=== PATIENT | male | born 1955 | race Caucasian/White ===

== ENCOUNTER 2016-12-02 10:02 | Outpatient (CLI) | payer MEDICAID | END 2016-12-02 10:03 | disposition home or self-care (01) | DX: E11.9 Type 2 diabetes mellitus without complications (principal) ==

== ENCOUNTER 2017-01-01 12:24 | Outpatient (CLI) | payer MEDICAID | END 2017-01-01 12:25 | disposition home or self-care (01) | DX: L03.116 Cellulitis of left lower limb (principal) ==

== ENCOUNTER 2017-03-22 09:35 | Outpatient (CLI) | payer MEDICAID ==
[2017-03-22 19:08] LABS: ALBUMIN/GLOBULIN RATIO 1.3 (1.0-2.2); BILIRUBIN,TOTAL 0.4 mg/dL (0.2-1.0); BUN - BLOOD UREA NITROGEN 39 mg/dL (6-20); CALCIUM 10.2 mg/dL (8.5-10.3); CARBON DIOXIDE - CO2 27 mmol/L (21-32); CHLORIDE 108 mmol/L (101-111); CHOLESTEROL 112 mg/dL; CREATININE 1.3 mg/dL (0.6-1.2); GFR - MDRD 57 (>89); GLUCOSE 70 mg/dL (70-100); HDL CHOLESTEROL 28 mg/dL; LDL/HDL RATIO 1.9 (<3.6); POTASSIUM 4.4 mmol/L (3.5-5.0); SODIUM 143 mmol/L (135-145); TOTAL PROTEIN 7.9 g/dL (6.7-8.2); TRIGLYCERIDES 162 mg/dL; VLDL CHOLESTEROL 32 mg/dL
== END 2017-03-22 09:36 | disposition home or self-care (01) ==
LOC: LAB.F 09:35
PROVIDERS: ATTEND Nurse Practitioner Family
DX: E11.40 Type 2 diabetes mellitus with diabetic neuropathy, unspecified (principal)
CPT/HCPCS: 36415; 80053; 80061; 82043; 84443

== ENCOUNTER 2017-05-06 14:09 | Outpatient (CLI) | payer MEDICAID ==
[2017-05-06 16:26] LABS: HEMOGLOBIN A1C 0.93 g/dL
== END 2017-05-06 14:10 | disposition home or self-care (01) ==
LOC: LAB 14:09
PROVIDERS: ATTEND Nurse Practitioner Family
DX: E11.9 Type 2 diabetes mellitus without complications (principal)
CPT/HCPCS: 36415; 83036

== ENCOUNTER 2017-05-25 13:28 | Outpatient (CLI) | payer MEDICAID | END 2017-05-25 13:29 | disposition home or self-care (01) | LOC: RT.S 13:28 | PROVIDERS: ATTEND Nurse Practitioner Family | DX: E11.40 Type 2 diabetes mellitus with diabetic neuropathy, unspecified (principal) | CPT/HCPCS: 93005 ==

== ENCOUNTER 2017-06-23 12:02 | Emergency (ER) | payer MEDICAID ==
[2017-06-23] MEDS ORDERED: TETANUS/DIPHTHERIA/PERTUSSIS 0.5 ML SYRINGE IM ONE ×2 (12:21→12:41)
[2017-06-23] MEDS ORDERED: BUPIVACAINE 0.5% PF 30 ML VIAL SUBQ STA (13:00)
--- NOTE | 2017-06-23 13:06 | ED Physician Documentation ---
PD HPI UPPER EXT INJURY - Stated complaint Stated Complaint: R FINGER LAC/GLF - Chief complaint Chief Complaint: Ext Problem - History obtained from History obtained from: Patient, Family - History of Present Illness Location: Right, Finger (ring finger) Where injury occurred: Home Timing - onset: How many days ago (3) Timing - duration: Days (3) Timing - details: Gradual onset Pain level max: 4 Pain level now: 3 Improved by: Rest Worsened by: Moving, Palpating Associated symptoms: Swelling. No: Weakness, Numbness, Tingling Contributing factors: Other (diabetic male) Recently seen: Not recently seen Review of Systems Constitutional: denies: Fever, Chills Throat: denies: Sore throat Respiratory: denies: Cough GI: denies: Abdominal Pain, Nausea, Vomiting, Diarrhea Skin: denies: Rash Musculoskeletal: denies: Neck pain, Back pain Neurologic: denies: Headache PD PAST MEDICAL HISTORY - Past Medical History Cardiovascular: Hypertension, High cholesterol Neuro: Head injury, Peripheral neuropathy Endocrine/Autoimmune: Type 2 diabetes GI: None : Incontinence HEENT: Chronic vision loss Psych: Depression, Bipolar disorder, Panic attacks, Post traumatic stress disorder Musculoskeletal: None Derm: None - Past Surgical History Past Surgical History: Yes General: Other Ortho: Amputation - Present Medications Home Medications: Ambulatory Orders Medication Instructions Recorded Confirmed ARIPiprazole [Abilify] 15 mg PO QPM 03/02/13 06/23/17 Lisinopril 10 mg PO BID 03/02/13 06/23/17 Sertraline [Zoloft] 50 mg PO BID 03/02/13 06/23/17 Insulin Glargine,Hum.rec.anlog 35 - 40 units SUBQ BID 03/25/15 06/23/17 [Lantus] Insulin Regular, Human [Humulin R] 5 - 11 unit SQ TIDWM 03/25/15 06/23/17 Methadone 1.5 tab PO QPM 03/25/15 06/23/17 Multivitamin [Multivitamins] 1 cap PO DAILY 03/25/15 06/23/17 Niacin 100 mg PO BID 03/25/15 06/23/17 Triamcinolone 0.1% Cream [Kenalog 1 applic TOP DAILY PRN 03/25/15 06/23/17 0.1% Cream] Ubidecarenone [Co Q-10] 1 cap PO DAILY 03/25/15 06/23/17 lamoTRIgine [Lamictal] 150 mg PO BID 03/25/15 06/23/17 metFORMIN [Glucophage] 1,000 mg PO BID 03/25/15 06/23/17 Pravastatin Sodium 40 mg PO DAILY 03/26/15 06/23/17 Methadone 2 tab PO DAILY 04/27/16 06/23/17 Clindamycin HCl 300 mg PO Q6H #28 capsule 06/23/17 - Allergies Allergies/Adverse Reactions: Allergies Allergy/AdvReac Type Severity Reaction Status Date / Time atorvastatin calcium * Allergy Unknown Unknown Verified 06/23/17 12:31 [From Lipitor] - Social History Does the pt smoke?: Yes Smoking Status: Current every day smoker Does the pt drink ETOH?: No Does the pt have substance abuse?: No - Immunizations Immunizations are current?: No Immunizations: TDAP >10years/unknown PD ED PE NORMAL - Vitals Vital signs reviewed: Yes - General General: Alert and oriented X 3, No acute distress - HEENT HEENT: Moist mucous membranes - Neck Neck: Supple, no meningeal sign - Cardiac Cardiac: RRR, No murmur - Respiratory Respiratory: No respiratory distress, Clear bilaterally - Derm Derm: Warm and dry - Extremities Extremities: Other (R hand - swelling and redness to the R 4th digit, rings stuck on finger. NVI. swelling over dorsum of hand. No redness over the hand. No flexor tendon tenderness or palmar tenderness. ) - Neuro Neuro: Alert and oriented X 3 - Psych Psych: Normal mood, Normal affect Results - Vitals Vitals: Vital Signs - 24 hr 06/23/17 06/23/17 12:15 15:20 Temperature 36.7 C Heart Rate 84 80 Respiratory 18 20 Rate Blood Pressure 134/64 H 130/60 O2 Saturation 98 99 Oxygen O2 Source Room air - Rads (name of study) R hand xray Radiology: Prelim report reviewed, EMP read contemporaneously, See rad report ( Prominent right fourth finger soft tissue swelling adjacent to proximal interphalangeal joint. No fracture evident. ) PD MEDICAL DECISION MAKING - ED course Complexity details: reviewed results, re-evaluated patient, considered differential, d/w patient, d/w family ED course: Patient is a 61-year-old male who presents to the emergency department with a right hand cellulitis and skin breakdown under the rings from the swelling on the right fourth digit. A digital block was performed with 0.5% Marcaine with excellent anesthesia achieved. A rubber blood tourniquet was then used to squeeze the edema from the finger and the rings were able to be removed. The wounds were then cleansed, dressed with antibiotic ointment and Band-Aids. Will place on antibiotics for home as well. He does already see the [facility] for wound care and will likely need wound care for this injury as well. There is no lymphangitic spread or evidence of deep space infection in the hand. No flexor tenosynovitis. Patient and family counseled regarding signs and symptoms for which I believe and urgent re-evaluation would be necessary. Patient with good understanding of and agreement to plan and is comfortable going home at this time This document was made in part using voice recognition software. While efforts are made to proofread this document, sound alike and grammatical errors may occur. Departure - Departure Disposition: 01 Home, Self Care Clinical Impression: Cellulitis of hand Hand abrasion, infected Qualifiers: Encounter type: initial encounter Laterality: right Qualified Code(s): S60.511A - Abrasion of right hand, initial encounter Condition: Good Instructions: ED Infec Skin Cellulitis Follow-Up: Hannah Woods ARNP [Primary Care Provider] - Within 3 Days Prescriptions: Clindamycin HCl 300 mg PO Q6H #28 capsule Comments: Take all antibiotics until gone. It is important that you follow-up with your doctor within the next 3-4 days to have your wound rechecked. Return here if you are worsening prior to that time. Return especially for redness, swelling drainage or fevers. Discharge Date/Time: 06/23/17 15:21
[2017-06-23] MEDS ORDERED: BUPIVACAINE 0.5% PF 30 ML VIAL ONE (13:07)
[2017-06-23] MEDS ORDERED: CLINDAMYCIN 150 MG CAPSULE PO STA (14:06)
[2017-06-23] MEDS ORDERED: cefTRIAXone 1 GM VIAL IM STA (14:06)
[2017-06-23] MEDS ORDERED: BACITRACIN OINT TOP ONE (14:11)
[2017-06-23] MEDS ORDERED: LIDOCAINE 1% 2 ML VIAL ONE (14:19)
[2017-06-23] MEDS ORDERED: cefTRIAXone 1 GM VIAL ONE (14:19)
[2017-06-23] MEDS ORDERED: CLINDAMYCIN 150 MG CAPSULE PO ONE (14:19)
--- NOTE | 2017-06-23 15:10 | XRAY Preliminary Report ---
Exam: XR HAND 3 VIEW RT IMPRESSION: 1. Prominent right fourth finger soft tissue swelling adjacent to proximal interphalangeal joint. 2. No fracture evident. [facility] SITE ID: [id number]
--- NOTE | 2017-06-23 15:13 | XRAY Report ---
EXAM: RIGHT HAND RADIOGRAPHY EXAM DATE: 06/23/2017 02:40 PM. CLINICAL HISTORY: Fall, R 4th digit swelling, pain, infection. COMPARISON: None. TECHNIQUE: 3 views. FINDINGS: Bones: Normal. No fractures or bone lesions. Joints: Right index finger distal interphalangeal joint was flexed at time of exam. Soft Tissues: Prominent fourth finger soft tissue swelling adjacent to proximal interphalangeal join t. Adjacent gauze or splint. IMPRESSION: 1. Prominent right fourth finger soft tissue swelling adjacent to proximal interphalangeal joint. 2. No fracture evident. [facility] Referring Provider Line: [phone] SITE ID: [id number]
[2017-06-23 15:21] VITALS: BP 130/60
== END 2017-06-23 15:21 | disposition home or self-care (01) ==
LOC: ED 12:02
DX: L03.011 Cellulitis of right finger (principal); S60.511A Abrasion of right hand, initial encounter; S60.454A Superficial foreign body of right ring finger, initial encounter; W23.1XXA Caught, crushed, jammed, or pinched between stationary objects, initial encounter; W19.XXXA Unspecified fall, initial encounter; Y92.009 Unspecified place in unspecified non-institutional (private) residence as the place of occurrence of the external cause; Z23 Encounter for immunization; E11.42 Type 2 diabetes mellitus with diabetic polyneuropathy; I10 Essential (primary) hypertension; Z79.4 Long term (current) use of insulin
CPT/HCPCS: 64450; 73130; 90471; 90715; 96372; 99283; 99284; A9270

== ENCOUNTER 2017-08-27 11:28 | Outpatient (CLI) | payer MEDICAID ==
--- NOTE | 2017-08-27 15:29 | XRAY Report ---
DATE OF SERVICE: 08/27/2017 THREE VIEW LEFT SECOND TOE: 08/27/2017 CLINICAL INDICATION: Infection. COMPARISON: 09/09/2010. FINDINGS: AP, lateral, oblique views of the left second toe demonstrate interval complete destruction of the distal phalanx. There has also been increased destruction of the distal phalanx of the left third toe. Early osteolysis of the middle phalanx of the second toe was noted. Degenerative changes are seen. IMPRESSION: OSTEOMYELITIS, WITH COMPLETE DESTRUCTION OF THE DISTAL PHALANX OF THE SECOND TOE, OSTEOLYSIS OF THE MIDDLE PHALANX OF THE SECOND TOE, AND PROGRESSION OF OSTEOLYSIS OF THE DISTAL PHALANX OF THE THIRD TOE FROM 09/09/2010. Results called to YUMIKO Wiley, on 08/27/2017 at 1410 hours. TD: 08/27/2017 16:28
== END 2017-08-27 11:29 | disposition home or self-care (01) ==
LOC: DI.S 11:28
PROVIDERS: ATTEND Nurse Practitioner Family
DX: M86.8X7 Other osteomyelitis, ankle and foot (principal); M89.572 Osteolysis, left ankle and foot
CPT/HCPCS: 73660

== ENCOUNTER 2017-08-27 11:30 | Outpatient (CLI) | payer MEDICAID | END 2017-08-27 11:31 | disposition home or self-care (01) | LOC: LAB.R 11:30 | PROVIDERS: ATTEND Nurse Practitioner Family | DX: L08.9 Local infection of the skin and subcutaneous tissue, unspecified (principal) | CPT/HCPCS: 87070; 87077; 87205 ==

== ENCOUNTER 2017-08-27 14:03 | Outpatient (CLI) | payer MEDICAID ==
[2017-08-27 18:03] LABS: BASOPHILS % (AUTO) 0.5 %; EOSINOPHILS # (AUTO) 0.2 10^3/uL (0.0-0.7); EOSINOPHILS % (AUTO) 1.7 %; HGB - HEMOGLOBIN 11.6 g/dL (14.0-18.0); LYMPHOCYTES # (AUTO) 1.9 10^3/uL (1.5-3.5); LYMPHOCYTES % (AUTO) 20.5 %; MEAN CORPUSCULAR HEMOGLOBIN 28.7 pg (27.0-31.0); MEAN CORPUSCULAR HGB CONC 33.1 g/dL (32.0-36.0); MEAN CORPUSCULAR VOLUME 86.5 fL (80.0-94.0); MEAN PLATELET VOLUME 9.2 fL (7.4-11.4); MONOCYTES # (AUTO) 0.5 10^3/uL (0.0-1.0); MONOCYTES % (AUTO) 5.6 %; NEUTROPHILS # (AUTO) 6.5 10^3/uL (1.5-6.6); NEUTROPHILS % (AUTO) 71.7 %; PLT - PLATELET COUNT 169 10^3/uL (130-450); RED BLOOD COUNT 4.06 10^6/uL (4.70-6.10); RED CELL DISTRIBUTION WIDTH 15.4 % (12.0-15.0); WHITE BLOOD COUNT 9.1 x10^3/uL (4.8-10.8)
== END 2017-08-27 14:04 | disposition home or self-care (01) ==
LOC: LAB.F 14:03
PROVIDERS: ATTEND Nurse Practitioner Family
DX: L08.9 Local infection of the skin and subcutaneous tissue, unspecified (principal)
CPT/HCPCS: 36415; 85025; 85651; 86140

== ENCOUNTER 2017-08-27 15:33 | Inpatient (IN) | payer MEDICAID ==
[2017-08-27] MEDS ORDERED: SODIUM CHLORIDE FLUSH 0.9% 10 ML SYRINGE IVP PRN (16:41)
[2017-08-27] MEDS ORDERED: TRIAMCINOLONE 0.1% CREAM 15 GM TUBE TOP PRN (16:45)
[2017-08-27] MEDS ORDERED: VANCOMYCIN PER PHARMACY 1 GM in SODIUM CHLORIDE 0.9% 250 ML IV SCH (17:00)
[2017-08-27] MEDS ORDERED: INSULIN ASPART 300 UNIT/3 ML PEN SUBQ SCH (17:00)
[2017-08-27] MEDS ORDERED: SODIUM CHLORIDE 0.9% 1,000 ML IV SCH (17:00)
[2017-08-27] MEDS: INSULIN ASPART 300 UNIT/3 ML PEN SUBQ SCH ×2 (17:26→21:16)
[2017-08-27] MEDS: PIPERACILLIN/TAZOBACTAM 3.375 GM in SODIUM CHLORIDE 0.9% MINIBAG 100 ML IV SCH ×2 (19:11→23:39)
[2017-08-27] MEDS: VANCOMYCIN INJ 1 GM in SODIUM CHLORIDE 0.9% 250 ML IV SCH (19:12)
--- NOTE | 2017-08-27 20:08 | HISTORY & PHYSICAL EXAMINATION ---
DATE OF SERVICE: Physician: Ana Rosa Gómez MD DATE OF ADMISSION: 08/27/2017. PRIMARY CARE PHYSICIAN: CYNTHIA Wiley. ADMITTING PROVIDER: Ana Rosa Gómez MD CHIEF COMPLAINT: Severe infection of left foot second and third toes. HISTORY OF PRESENT ILLNESS: Mr. Jon has had diabetes mellitus for 30 years, but he really was not probably adequately treated until the year 1999. As such, he has severe dense peripheral neuropathy and proteinuria as consequences of uncontrolled diabetes. He developed right foot ulcer and necrosis with extensive wound management in May 2013, and ended up having a below-knee amputation after a fall subsequent to that. Also, associated with that fall was an orbital fracture that he need to be transferred for. In July, he went to [place] for 2 weeks, and while there, walked down a long [facility]. Even before he walked down that road, he knew he had a tiny little sore on the tip of the second toe on his left foot. He had been seen by Maritza Black DPM on 07/30/17 and she described a mushy ulceration at the distal tip fo the 2nd digit left foot. She debrided it and he had a 1mm depth to the dermis, no drainage, no odor. He has a secnd pressure ulceration on the plantar surface of the 5th metatarsal that was 6x8 mm after debridement. He was instructed how to keep the toes clean and dry, and sent with dressing changes so he could take care of the toes in [place]. In retrospect, he said it was probably a bad decision to walk down that road. When he got back from that walk, he developed even more blister on the second and third toe. About 10-12 days ago, he started noticing that the toes were getting red, swollen, and hot. Because of his dense neuropathy, he really did not feel much pain. He has not had any fever, chills. He has had no change in bowel habits. No myalgias. Over the last couple of days, the toes really started looking "bad" in that they started turning black. So he went to go see his primary care provider, YUMIKO Wiley. Plain films shows osteomyelitis. She looked at the feet and spoke to Dr. Franks, orthopedic surgery. It is possible he may need amputation. Dr. Franks asked the patient to be admitted to my service and then he would take a look at him. I have direct-admitted the patient to the floor. Ms. Woods has stated the patient is hemodynamically stable without any problems of sepsis. History is obtained from the patient. He is an alert, oriented, middle-aged white male. The above history is what he tells me, in addition to the story from Hannah Woods. PAST MEDICAL HISTORY: 1. Type 2 diabetes mellitus, with complications, on long-term use of insulin. Complications include neuropathy and proteinuria. He is not compliant with meds, followup visits, and dietary restrictions. Does see his instructor pilot for diabetic foot exams and also [place] ed educational [place] [facility] [place] maintaining the health of the right leg stump after the BKA. 2. Bipolar disorder with depressive disorder, all of his life. 3. Hepatitis C. He did do IV drugs in 1978 and 1979. Hepatitis C is quiescent and never required treatment. He does not have cirrhosis. 4. Hypertension. 5. Chronic pain disorder secondary to dense neuropathy. Seen by [facility] in 2014 and re-referred 11/2106. With the 2015 notes he was on gabapentin 300 mg capsules, 3 cap tid and with the methadone he was on 10 mg tabs, 2 po bid. Drug screen positive for only THC then. 6. Hyperlipidemia 7. Fall while in hospital for BKA resulting in orbital fracture and transfer to [place]. 8. History of pancreatitis. PAST SURGICAL HISTORY: 1. Below-knee amputation 05/2013. 2. Some type of gastric surgery when he was a . ALLERGIES: NO KNOWN DRUG ALLERGIES. MEDICATIONS: 1. Abilify 15 mg p.o. q. p.m. 2. Vitamin B12 500 mcg q. p.m. 3. Gabapentin 800 mg p.o. t.i.d. 4. Lantus 35 units subQ b.i.d. 5. Humulin R 10 units subQ q. t.i.d. 6. Lamictal 150 p.o. b.i.d. 7. Lisinopril 10 mg p.o. b.i.d. 8. Glucophage 1000 mg p.o. b.i.d. 9. Methadone 15 mg p.o. q. p.m. and 20 mg p.o. q.a.m. 10. Theragran tablet, 1 p.o. daily. 11. Pravastatin 40 mg a day. 12. Sertraline 50 mg p.o. b.i.d. 13. Zanaflex 8 mg p.o. q. p.m. SOCIAL HISTORY: He was born in [place], [place]. Met his when he was partying in [place], [place]. They have been together for 30 years. 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 They never had children together. He has been on disability for 10 years due to his diabetes and his bipolar disorder. He started smoking in his teenage years around 1970 and was up to 1 pack per day, started around the age of 17. He still continues to smoke, but was off smoking for at least 10 years. He used to drink up to a bottle of vodka a day and he stopped in 2012 with the BKA. He has done methamphetamines for 5 years, but that was back in the . He has not done any since. Occasional cannabis. No LSD, heroin. FAMILY HISTORY: Mom at age 75 of natural causes. Dad at 65 of alcoholism. One brother and one sister when they were young and he does not remember what they of because he really has not kept in touch for over 30 years. He still has 2 brothers and 1 sister alive and really does not know very much about them. He has no children. REVIEW OF SYSTEMS: He denies any constitutional complaints of weight loss, fever, chills, unexpected weight changes. ENT: Gradually losing vision, but he denies retinopathy. He does not think it is glaucoma or cataracts. Denies amaurosis fugax. Denies any facial dysesthesias. Some decreased hearing. PULMONARY: Denies coughing, wheezing, shortness of breath, hemoptysis or phlegm. CARDIOVASCULAR: Denies angina, irregular heartbeats, murmurs, any form of heart disease. Denies any edema in the remaining left leg. No orthopnea. GASTROINTESTINAL: Has had chronic diarrhea for the last 2-3 months. It is liquid brown stool. It comes from out of nowhere, not necessarily associated with eating. There is no blood. No fever or chills with it. No abdominal pain. GENITOURINARY: Starting to develop decreased stream, 1-2 nocturia. Denies rectal pain, hematuria, dysuria, frequency. JOINTS: No severe pain or swelling. SKIN: Denies new lesions or ulcers or rashes. WOUND NURSE: He follows all the time because his balance is off, but he denies facial dysesthesias, dysarthria or dysphagia. He has a dense peripheral neuropathy. PSYCH: He is very much in love with his . Life is good. He gardens and listens to music, and that makes him very content, but the loss of his leg really psychologically rocked his world. He finds that if he needed to have anymore surgery, he almost thinks he would not have it done if it resulted in another amputation of the remaining leg. He denies suicidal ideation, homicidal ideation or paranoid ideation. PHYSICAL EXAMINATION: GENERAL: On examination, the patient was seen in his room as a direct admission. He was an alert, pleasant, middle-aged white male with long, curly salt and pepper hair, multiple rings on his hands and fingers, tanned. Walks with a slightly wide-based circumducted gait because of the right BKA and its orthotic. VITAL SIGNS: Temperature is 36.8, pulse is 77, blood pressure 128/65, respirations 16, and he is 97% on room air. He is a short-statured, middle-aged male. HEENT: Head and neck are unremarkable. NECK: Supple. No goiter or bruits. LUNGS: Clear to auscultation and percussion. No crackles, rhonchi or wheezing. No prolonged exhalation. No right ventricular lift. PMI is normally placed with regular rate and rhythm. No murmurs, rubs or gallops. ABDOMEN: Soft, nontender, slightly hyperactive borborygmi very evident, but no rebound or tenderness. No guarding. EXTREMITIES: Right leg stump, clean, well healed. The left second and third toes have necrosis and redness and heat. The metatarsal region is starting to develop redness and swelling as well. No drainage, no foul odor. I do not feel a pulse in the dorsalis pedis region of his left foot. NEUROLOGIC: He is alert and oriented to person, place and time. Can follow 2- step commands. Affect is slightly depressed and anxious. Dense, dense neuropathy. He cannot feel a needle prick in the palms or soles of his left foot. The deficit of his neuropathy extends quite up the left leg to the knee, and in his hands it extends up his forearms. Vibration sense also severely impaired. He ambulates well with the prosthesis on. Slight circumducted gait using the right hip. No focal deficits. Random glucose is 86. C-reactive protein is 1.3. His last A1c was 8.4%, May 06. Before that, it was 9.8%, 12/03/2016. CBC and CMP are pending. Toe x-ray from today in the outpatient setting is reviewed. He has osteomyelitis with complete destruction of the distal phalanx of the 2nd toe on the left foot. He has osteolysis of the middle phalanx of the second toe and progression of osteolysis of the distal phalanx of the third toe. ASSESSMENT: 1. Osteomyelitis. 2. Diabetic foot infection. For these 2 diseases, he will be placed on vancomycin and Zosyn coverage. I will have him seen by orthopedics, Dr. Franks. Nothing by mouth after midnight. Check PT and INR. I do not know if Dr. Franks will take him to surgery, but I will get him ready just in case. 3. Type 2 diabetes mellitus with complications and long-term use of insulin. Give Lantus 30 units subQ b.i.d. with 5 units before meals. We will see how his sugar does before I adjust it. He seems to have been uncontrolled in his A1c. In reading the clinic notes , this is his unfortunate pattern. 4. Bipolar disorder with depression. Resume usual medications. 5. Chronic pain syndrome. Resume his usual methadone. 6. Ongoing tobacco abuse. So far, no signs of emphysema on exam. Counseled to stop and the description of peripheral vascular disease was described with his pathophysiology. 7. DO NOT RESUSCITATE/DO NOT INTUBATE status. He states that the loss of his right leg with the amputation, he will not psychologically survive the loss of his left leg. Down the road, he realizes that he will only get more and more complications from his uncontrolled diabetes, and his smoking history. He is very fatalistic about it and as such he says that as he gets sicker, and ends up having a cardiopulmonary arrest, he would rather we NOT RESUSCITATE him at all. 8. Deep venous thrombosis prophylaxis will be SUZETTE hose and sequential compression devices until after surgery when I can switch him to Lovenox. I will attest that I plan to admit this patient for less than 96 hours. At 96 hours, I will assess the patient for transfer or discharge. TD: 08/27/2017 21:07 MTDAlisa
[2017-08-27 20:15] LABS: HEMOGLOBIN A1C 0.75 g/dL; HEMOGLOBIN A1C % 7.9 % (4.6-6.2)
[2017-08-27] MEDS ORDERED: NIACIN 100 MG PO SCH (21:00)
[2017-08-27] MEDS ORDERED: METHADONE 5 MG TABLET PO SCH (21:00)
[2017-08-27] MEDS ORDERED: tiZANidine 4 MG TABLET PO SCH (21:00)
[2017-08-27] MEDS ORDERED: ARIPiprazole 5 MG TABLET PO SCH (21:00)
[2017-08-27] MEDS ORDERED: INSULIN GLARGINE 300 UNIT/3 ML PEN SUBQ SCH (21:00)
[2017-08-27] MEDS: LISINOPRIL 5 MG TABLET PO SCH (21:20)
[2017-08-27] MEDS: GABAPENTIN 400 MG CAPSULE PO SCH (21:21)
[2017-08-27] MEDS: NICOTINE 21 MG PATCH TOP SCH (21:21)
[2017-08-27] MEDS: INSULIN GLARGINE 300 UNIT/3 ML PEN SUBQ SCH (21:22)
[2017-08-27] MEDS: SERTRALINE 50 MG TABLET PO SCH (21:22)
[2017-08-27] MEDS: SODIUM CHLORIDE FLUSH 0.9% 10 ML SYRINGE IVP SCH (21:22)
[2017-08-28] MEDS: PIPERACILLIN/TAZOBACTAM 3.375 GM in SODIUM CHLORIDE 0.9% MINIBAG 100 ML IV SCH ×2 (05:57→12:55)
[2017-08-28] MEDS: GABAPENTIN 400 MG CAPSULE PO SCH ×2 (05:57→14:37)
[2017-08-28 06:22] LABS: PT - PROTHROMBIN TIME 11.4 secs (9.9-12.6)
[2017-08-28 06:23] LABS: HGB - HEMOGLOBIN 10.2 g/dL (14.0-18.0); MEAN CORPUSCULAR HEMOGLOBIN 28.1 pg (27.0-31.0); MEAN CORPUSCULAR HGB CONC 32.7 g/dL (32.0-36.0); MEAN CORPUSCULAR VOLUME 86.1 fL (80.0-94.0); RED BLOOD COUNT 3.62 10^6/uL (4.70-6.10); RED CELL DISTRIBUTION WIDTH 15.8 % (12.0-15.0); WHITE BLOOD COUNT 6.4 x10^3/uL (4.8-10.8)
[2017-08-28] MEDS ORDERED: DEXTROSE 50% ABBOJECT 25 GM/50 ML SYRINGE ONE (06:31)
[2017-08-28 06:35] LABS: ALBUMIN 3.1 g/dL (3.2-5.5); ALBUMIN/GLOBULIN RATIO 0.9 (1.0-2.2); ALKALINE PHOSPHATASE 178 IU/L (42-121); ALT ALANINE AMINOTRANSFERASE 50 IU/L (10-60); AST ASPARTATE AMINOTRANSFERASE 47 IU/L (10-42); BILIRUBIN,TOTAL 0.4 mg/dL (0.2-1.0); BUN - BLOOD UREA NITROGEN 28 mg/dL (6-20); CARBON DIOXIDE - CO2 26 mmol/L (21-32); CHLORIDE 108 mmol/L (101-111); CREATININE 1.5 mg/dL (0.6-1.2); GFR - MDRD 48 (>89); SODIUM 143 mmol/L (135-145); TOTAL PROTEIN 6.7 g/dL (6.7-8.2)
[2017-08-28 06:36] LABS: GLUCOSE 43 mg/dL (70-100)
[2017-08-28] MEDS: SODIUM CHLORIDE FLUSH 0.9% 10 ML SYRINGE IVP SCH ×2 (06:43→11:17)
[2017-08-28] MEDS ORDERED: DEXTROSE 5% 1,000 ML IV SCH (07:00)
[2017-08-28] MEDS: VANCOMYCIN INJ 1 GM in SODIUM CHLORIDE 0.9% 250 ML IV SCH (07:26)
[2017-08-28 08:00] VITALS: BP 106/56
[2017-08-28] MEDS ORDERED: MULTIVITAMIN TABLET PO SCH (08:00)
--- NOTE | 2017-08-28 08:49 | PROVIDER PROGRESS NOTE ---
Subjective - Prog Note Date Prog Note Date: 08/28/17 Prog Note Time: 08:47 - Subjective Subjective: He has been having low blood sugars. This is in spite of me reducing his usual maintenance insulin from the outpatient setting as he transition into the inpatient setting. He is n.p.o. after midnight for possible surgery today. He denies any new complaints of foot pain, chest pain, abdominal pain. He has not had any fevers or chills overnight. Current Medications - Current Medications Current Medications: Active Medications Aripiprazole (Abilify) 15 mg PO QPM [facility] Last Admin: 08/27/17 21:22 Dose: 15 mg Gabapentin (Neurontin) 800 mg PO TID [facility] Last Admin: 08/28/17 05:57 Dose: 800 mg Piperacillin Sod/Tazobactam (Sod 3.375 gm/ Sodium Chloride) 100 mls @ 200 mls/ hr IV Q6H [facility] Last Infusion: 08/28/17 06:38 Dose: Infused Vancomycin HCl 1 gm/ Sodium (Chloride) 250 mls @ 167 mls/hr IV Q12H [facility] Last Admin: 08/28/17 07:26 Dose: 167 mls/hr Dextrose (D5w) 1,000 mls @ 100 mls/hr IV .Q10H [facility] Last Infusion: 08/28/17 07:05 Dose: 0 mls/hr Insulin Glargine (Lantus Solostar) 30 unit SUBQ BID [facility] Last Admin: 08/27/17 21:22 Dose: 30 unit Insulin Human Regular (Novolin R) 1 - 5 unit SUBQ Q6HR [facility] PRN Reason: Protocol Lamotrigine (Lamictal) 150 mg PO BID [facility] Lisinopril (Zestril) 10 mg PO BID [facility] Last Admin: 08/27/17 21:20 Dose: 10 mg Methadone HCl () 15 mg PO QPM [facility] Last Admin: 08/27/17 21:21 Dose: 15 mg Methadone HCl () 20 mg PO DAILY [facility] Multivitamins (Theragran) 1 tab PO DAILYWM [facility] Nicotine (Nicoderm) 1 patch TOP DAILY [facility] Last Admin: 08/27/17 21:21 Dose: 1 patch Polyethylene Glycol (Miralax) 17 gm PO DAILY [facility] Pravastatin Sodium (Pravachol) 40 mg PO DAILY [facility] Sertraline HCl (Zoloft) 50 mg PO BID [facility] Last Admin: 08/27/17 21:22 Dose: 50 mg Sodium Chloride (Normal Saline Flush 0.9%) 10 ml IVP PRN PRN PRN Reason: NEEDED PER PROVIDER ORDERS Sodium Chloride (Normal Saline Flush 0.9%) 10 ml IVP Q8HR [facility] Last Admin: 08/28/17 06:43 Dose: Not Given Tizanidine HCl (Zanaflex) 8 mg PO QPM [facility] Last Admin: 08/27/17 21:21 Dose: 8 mg ARIPiprazole [Abilify] 15 mg PO QPM 03/02/13 Lisinopril 10 mg PO BID 03/02/13 Sertraline [Zoloft] 50 mg PO BID 03/02/13 Insulin Regular, Human [Humulin R] 10 unit SQ TIDWM 03/25/15 Methadone 15 mg PO QPM 03/25/15 lamoTRIgine [Lamictal] 150 mg PO BID 03/25/15 metFORMIN [Glucophage] 1,000 mg PO BIDWM 03/25/15 Pravastatin Sodium 40 mg PO QPM 03/26/15 Methadone 20 mg PO DAILY 04/27/16 Cyanocobalamin (Vitamin B-12) [Vitamin B-12 (500 mcg sublingual)] 500 mcg PO QPM 08/27/17 Gabapentin 800 mg PO TID 08/27/17 Insulin Glargine,Hum.rec.anlog [Basaglar Kwikpen U-100] 35 units SUBQ BID Multivitamin [Theragran] 1 tab PO DAILY 08/27/17 tiZANidine [Zanaflex] 8 mg PO QPM 08/27/17 Objective - Vital Signs/Intake & Output Reviewed Vital Signs: Yes Vital Signs: Vital Signs x48h Temp Pulse Resp BP Pulse Ox 08/28/17 07:59 36.5 C 60 18 106/56 L 94 Intake & Output: Intake & Output 08/25/17 08/26/17 08/27/17 08/28/17 23:59 23:59 23:59 23:59 Intake Total 1373 775.000 Balance 1373 775.000 - Objective General Appearance: positive: No acute distress, Alert, Other (Middle-aged white male, tanned, long hair, sleeping but easily wakes) Eyes Bilateral: positive: PERRL, EOMI ENT: positive: Pharynx nml, Other (Poor dentition) Neck: positive: Thyroid nml. negative: Lymphadenopathy (R), Lymphadenopathy (L) , Stiff neck, Carotid bruit Respiratory: positive: Chest non-tender. negative: Wheezes, Rales, Rhonchi Cardiovascular: positive: Regular rate & rhythm, Systolic murmur. negative: Gallop/S4, Friction rub Abdomen: positive: Non-tender, No organomegaly, Nml bowel sounds, No distention Skin: positive: Warm, Dry Extremities: positive: Other (He has a right BKA. The left second and third toes are black necrotic. The redness and swelling I was seeing around the metatarsals of the other toes and the ball of his foot has started to recede.) Neurologic/Psychiatric: positive: Oriented x3, CN's nml (2-12), Motor nml - Lab Results Fish Bones: 08/28/17 05:34 08/28/17 05:34 Other Labs: Lab Results x24hrs 08/28/17 08/28/17 08/28/17 Range/Units 06:59 06:49 06:20 WBC (4.8-10.8) x10^3/uL RBC (4.70-6.10) 10^6/uL Hgb (14.0-18.0) g/dL Hct (42.0-52.0) % MCV (80.0-94.0) fL MCH (27.0-31.0) pg MCHC (32.0-36.0) g/dL RDW (12.0-15.0) % Plt Count (130-450) 10^3/uL MPV (7.4-11.4) fL PT (9.9-12.6) secs INR (0.8-1.2) Sodium (135-145) mmol/L Potassium (3.5-5.0) mmol/L Chloride (101-111) mmol/L Carbon Dioxide (21-32) mmol/L Anion Gap (6-13) BUN (6-20) mg/dL Creatinine (0.6-1.2) mg/dL Estimated GFR (MDRD) (>89) Glucose (70-100) mg/dL POC Whole Bld Glucose 155 H 154 H 38 L* (70 - 100) mg/dL Glycated Hemoglobin (4.6-6.2) % Estim Average Glucose (70-100) Calcium (8.5-10.3) mg/dL Ionized Calcium Total Bilirubin (0.2-1.0) mg/dL AST (10-42) IU/L ALT (10-60) IU/L Alkaline Phosphatase (42-121) IU/L Total Protein (6.7-8.2) g/dL Albumin (3.2-5.5) g/dL Globulin (2.1-4.2) g/dL Albumin/Globulin Ratio (1.0-2.2) 08/28/17 08/28/17 08/28/17 Range/Units 05:34 05:34 05:34 WBC 6.4 (4.8-10.8) x10^3/uL RBC 3.62 L (4.70-6.10) 10^6/uL Hgb 10.2 L (14.0-18.0) g/dL Hct 31.2 L (42.0-52.0) % MCV 86.1 (80.0-94.0) fL MCH 28.1 (27.0-31.0) pg MCHC 32.7 (32.0-36.0) g/dL RDW 15.8 H (12.0-15.0) % Plt Count 135 (130-450) 10^3/uL MPV 9.0 (7.4-11.4) fL PT 11.4 (9.9-12.6) secs INR 1.0 (0.8-1.2) Sodium 143 (135-145) mmol/L Potassium 4.3 (3.5-5.0) mmol/L Chloride 108 (101-111) mmol/L Carbon Dioxide 26 (21-32) mmol/L Anion Gap 9.0 (6-13) BUN 28 H (6-20) mg/dL Creatinine 1.5 H (0.6-1.2) mg/dL Estimated GFR (MDRD) 48 L (>89) Glucose 43 L* (70-100) mg/dL POC Whole Bld Glucose (70 - 100) mg/dL Glycated Hemoglobin (4.6-6.2) % Estim Average Glucose (70-100) Calcium 9.0 (8.5-10.3) mg/dL Ionized Calcium NO Total Bilirubin 0.4 (0.2-1.0) mg/dL AST 47 H (10-42) IU/L ALT 50 (10-60) IU/L Alkaline Phosphatase 178 H (42-121) IU/L Total Protein 6.7 (6.7-8.2) g/dL Albumin 3.1 L (3.2-5.5) g/dL Globulin 3.6 (2.1-4.2) g/dL Albumin/Globulin Ratio 0.9 L (1.0-2.2) 08/27/17 08/27/17 08/27/17 Range/Units 20:13 17:14 14:07 WBC (4.8-10.8) x10^3/uL RBC (4.70-6.10) 10^6/uL Hgb (14.0-18.0) g/dL Hct (42.0-52.0) % MCV (80.0-94.0) fL MCH (27.0-31.0) pg MCHC (32.0-36.0) g/dL RDW (12.0-15.0) % Plt Count (130-450) 10^3/uL MPV (7.4-11.4) fL PT (9.9-12.6) secs INR (0.8-1.2) Sodium (135-145) mmol/L Potassium (3.5-5.0) mmol/L Chloride (101-111) mmol/L Carbon Dioxide (21-32) mmol/L Anion Gap (6-13) BUN (6-20) mg/dL Creatinine (0.6-1.2) mg/dL Estimated GFR (MDRD) (>89) Glucose (70-100) mg/dL POC Whole Bld Glucose 91 86 (70 - 100) mg/dL Glycated Hemoglobin 7.9 H (4.6-6.2) % Estim Average Glucose 180 H (70-100) Calcium (8.5-10.3) mg/dL Ionized Calcium Total Bilirubin (0.2-1.0) mg/dL AST (10-42) IU/L ALT (10-60) IU/L Alkaline Phosphatase (42-121) IU/L Total Protein (6.7-8.2) g/dL Albumin (3.2-5.5) g/dL Globulin (2.1-4.2) g/dL Albumin/Globulin Ratio (1.0-2.2) Assessment/Plan - Problem List (1) Osteomyelitis of left foot Impression: He presented as recurrent ulcers of the left toe. He had a blister of the distal second toe July 30. Went on vacation and walked long distances. Then developed more blistering of the second toe and third toe. As time went on toes become black and necrotic. No fever, no chills. No drainage. Plan: Continue vancomycin and Zosyn, day #2 Continue with referral for orthopedic surgery evaluation with Dr. Genaro Franks Reevaluate antibiotics on the basis of culture Qualifiers: Osteomyelitis type: subacute Qualified Code(s): M86.272 - Subacute osteomyelitis, left ankle and foot (2) Cellulitis of left foot Impression: Today's exam shows some less swelling and redness of the metatarsals and the ball of his foot that was present yesterday. Now the focus of his infection seems to be the osteomyelitis. Plan: Continue with vancomycin and Zosyn, day #2 (3) Type 2 diabetes mellitus, uncontrolled, with lower extremity ulcer Impression: In reviewing the medical record and speaking to the patient, compliance seems to be an issue. He has been educated multiple times. There seems to be a component of depression and fatalistic attitude. While here he has been hypoglycemic. Plan: Cut back on Lantus and short acting insulin even further. Continue diabetic diet while here (4) ALEXEY (acute kidney injury) Impression: his usual creatinine has been 1.0 or less in the past. Now is elevated in face of use of vancomycin. Pharmacy to adjust. Plan: give 0.9 NS with 1 amp bicarb (5) Chronic pain associated with significant psychosocial dysfunction Impression: stable on his usual dose of methadone.
[2017-08-28] MEDS ORDERED: PRAVASTATIN 40 MG TABLET PO SCH (09:00)
[2017-08-28] MEDS ORDERED: UBIDECARENONE PO SCH (09:00)
[2017-08-28] MEDS ORDERED: POLYETHYLENE GLYCOL 3350 17 GM PACKET PO SCH (09:00)
[2017-08-28] MEDS ORDERED: METHADONE 5 MG TABLET PO SCH (09:00)
[2017-08-28] MEDS: INSULIN GLARGINE 300 UNIT/3 ML PEN SUBQ SCH (09:00)
[2017-08-28] MEDS ORDERED: lamoTRIgine 100 MG TABLET PO SCH (09:00)
[2017-08-28] MEDS: SERTRALINE 50 MG TABLET PO SCH (09:19)
[2017-08-28] MEDS: LISINOPRIL 5 MG TABLET PO SCH (09:20)
[2017-08-28] MEDS: NICOTINE 21 MG PATCH TOP SCH (09:21)
[2017-08-28] MEDS ORDERED: SODIUM BICARBONATE 100 MEQ in DEXTROSE 5% 1,000 ML IV SCH (11:00)
[2017-08-28] MEDS ORDERED: DEXTROSE 50% ABBOJECT 25 GM/50 ML SYRINGE IVP ONE (11:50)
[2017-08-28] MEDS ORDERED: INSULIN REGULAR HUMAN 100 UNIT/1 ML 10 ML MDV SUBQ SCH (12:00)
--- NOTE | 2017-08-28 13:41 | PROVIDER PROGRESS NOTE ---
Subjective - Prog Note Date Prog Note Date: 08/28/17 Prog Note Time: 13:39 - Subjective Pt reports feeling: No change (No pain in foot. No fever/chills. "I want to go home") Objective - Vital Signs/Intake & Output Vital Signs: Vital Signs x48h Temp Pulse Resp BP Pulse Ox 08/28/17 07:59 36.5 C 60 18 106/56 L 94 Intake & Output: Intake & Output 08/25/17 08/26/17 08/27/17 08/28/17 23:59 23:59 23:59 23:59 Intake Total 1373 1025.000 Balance 1373 1025.000 - Lab Results Fish Bones: 08/28/17 05:34 08/28/17 05:34 Other Labs: Lab Results x24hrs 08/28/17 08/28/17 08/28/17 Range/Units 12:36 11:45 06:59 WBC (4.8-10.8) x10^3/uL RBC (4.70-6.10) 10^6/uL Hgb (14.0-18.0) g/dL Hct (42.0-52.0) % MCV (80.0-94.0) fL MCH (27.0-31.0) pg MCHC (32.0-36.0) g/dL RDW (12.0-15.0) % Plt Count (130-450) 10^3/uL MPV (7.4-11.4) fL PT (9.9-12.6) secs INR (0.8-1.2) Sodium (135-145) mmol/L Potassium (3.5-5.0) mmol/L Chloride (101-111) mmol/L Carbon Dioxide (21-32) mmol/L Anion Gap (6-13) BUN (6-20) mg/dL Creatinine (0.6-1.2) mg/dL Estimated GFR (MDRD) (>89) Glucose (70-100) mg/dL POC Whole Bld Glucose 152 H 48 L* 155 H (70 - 100) mg/dL Glycated Hemoglobin (4.6-6.2) % Estim Average Glucose (70-100) Calcium (8.5-10.3) mg/dL Ionized Calcium Total Bilirubin (0.2-1.0) mg/dL AST (10-42) IU/L ALT (10-60) IU/L Alkaline Phosphatase (42-121) IU/L Total Protein (6.7-8.2) g/dL Albumin (3.2-5.5) g/dL Globulin (2.1-4.2) g/dL Albumin/Globulin Ratio (1.0-2.2) 08/28/17 08/28/17 08/28/17 Range/Units 06:49 06:20 05:34 WBC (4.8-10.8) x10^3/uL RBC (4.70-6.10) 10^6/uL Hgb (14.0-18.0) g/dL Hct (42.0-52.0) % MCV (80.0-94.0) fL MCH (27.0-31.0) pg MCHC (32.0-36.0) g/dL RDW (12.0-15.0) % Plt Count (130-450) 10^3/uL MPV (7.4-11.4) fL PT 11.4 (9.9-12.6) secs INR 1.0 (0.8-1.2) Sodium (135-145) mmol/L Potassium (3.5-5.0) mmol/L Chloride (101-111) mmol/L Carbon Dioxide (21-32) mmol/L Anion Gap (6-13) BUN (6-20) mg/dL Creatinine (0.6-1.2) mg/dL Estimated GFR (MDRD) (>89) Glucose (70-100) mg/dL POC Whole Bld Glucose 154 H 38 L* (70 - 100) mg/dL Glycated Hemoglobin (4.6-6.2) % Estim Average Glucose (70-100) Calcium (8.5-10.3) mg/dL Ionized Calcium Total Bilirubin (0.2-1.0) mg/dL AST (10-42) IU/L ALT (10-60) IU/L Alkaline Phosphatase (42-121) IU/L Total Protein (6.7-8.2) g/dL Albumin (3.2-5.5) g/dL Globulin (2.1-4.2) g/dL Albumin/Globulin Ratio (1.0-2.2) 08/28/17 08/28/17 08/27/17 Range/Units 05:34 05:34 20:13 WBC 6.4 (4.8-10.8) x10^3/uL RBC 3.62 L (4.70-6.10) 10^6/uL Hgb 10.2 L (14.0-18.0) g/dL Hct 31.2 L (42.0-52.0) % MCV 86.1 (80.0-94.0) fL MCH 28.1 (27.0-31.0) pg MCHC 32.7 (32.0-36.0) g/dL RDW 15.8 H (12.0-15.0) % Plt Count 135 (130-450) 10^3/uL MPV 9.0 (7.4-11.4) fL PT (9.9-12.6) secs INR (0.8-1.2) Sodium 143 (135-145) mmol/L Potassium 4.3 (3.5-5.0) mmol/L Chloride 108 (101-111) mmol/L Carbon Dioxide 26 (21-32) mmol/L Anion Gap 9.0 (6-13) BUN 28 H (6-20) mg/dL Creatinine 1.5 H (0.6-1.2) mg/dL Estimated GFR (MDRD) 48 L (>89) Glucose 43 L* (70-100) mg/dL POC Whole Bld Glucose 91 (70 - 100) mg/dL Glycated Hemoglobin (4.6-6.2) % Estim Average Glucose (70-100) Calcium 9.0 (8.5-10.3) mg/dL Ionized Calcium NO Total Bilirubin 0.4 (0.2-1.0) mg/dL AST 47 H (10-42) IU/L ALT 50 (10-60) IU/L Alkaline Phosphatase 178 H (42-121) IU/L Total Protein 6.7 (6.7-8.2) g/dL Albumin 3.1 L (3.2-5.5) g/dL Globulin 3.6 (2.1-4.2) g/dL Albumin/Globulin Ratio 0.9 L (1.0-2.2) 08/27/17 08/27/17 Range/Units 17:14 14:07 WBC (4.8-10.8) x10^3/uL RBC (4.70-6.10) 10^6/uL Hgb (14.0-18.0) g/dL Hct (42.0-52.0) % MCV (80.0-94.0) fL MCH (27.0-31.0) pg MCHC (32.0-36.0) g/dL RDW (12.0-15.0) % Plt Count (130-450) 10^3/uL MPV (7.4-11.4) fL PT (9.9-12.6) secs INR (0.8-1.2) Sodium (135-145) mmol/L Potassium (3.5-5.0) mmol/L Chloride (101-111) mmol/L Carbon Dioxide (21-32) mmol/L Anion Gap (6-13) BUN (6-20) mg/dL Creatinine (0.6-1.2) mg/dL Estimated GFR (MDRD) (>89) Glucose (70-100) mg/dL POC Whole Bld Glucose 86 (70 - 100) mg/dL Glycated Hemoglobin 7.9 H (4.6-6.2) % Estim Average Glucose 180 H (70-100) Calcium (8.5-10.3) mg/dL Ionized Calcium Total Bilirubin (0.2-1.0) mg/dL AST (10-42) IU/L ALT (10-60) IU/L Alkaline Phosphatase (42-121) IU/L Total Protein (6.7-8.2) g/dL Albumin (3.2-5.5) g/dL Globulin (2.1-4.2) g/dL Albumin/Globulin Ratio (1.0-2.2) - Diagnostic Imaging Diagnostic Imaging Comments: Absent left 2nd and 3rd distal phalanx of toe.Absent soft tissue coverage of right 2nd tip of toe - Other Results/Comments Other Results/Comments: EXAM: Necrotic tip of right second toe with exposed bone. Mild swelling/ erythema about the base of toe. No open wound or draiange about third toe. No lymphangitis Assessment/Plan - Problem List (1) Osteomyelitis of left foot Impression: - stable. No toxic clinically PLAN: Advised that infection and wound will not heal without surgery. He DOES NOT want any surgery at this time. "I want to go home and discuss options with her . Will come back in a few days." Cover with antibiotics and discharge home with follow up with PCP. When he decides he wishes surgery, PCP can reconsult orthopedics. Qualifiers: Osteomyelitis type: subacute Qualified Code(s): M86.272 - Subacute osteomyelitis, left ankle and foot
--- NOTE | 2017-08-28 15:12 | Discharge Plan ---
Discharge Plan Disposition: Home, Self Care Condition: Good Prescriptions: Amox/Clav 875/125 [Augmentin] 1 each PO Q12H #14 tablet Sulfamethox/Trimeth 800/160 [Bactrim Ds 800/160] 1 each PO BID #14 tablet Diet: Diabetic Activity Restrictions: Wt Bearing as Tolerated Shower Restrictions: Yes (keep foot clean and dry, do not soak in tub, pool, ocean or vargas) Driving Restrictions: Yes (until right foot heals, no driving) Assistance Devices: Cane Additional Instructions or Follow Up instructions: We had admitted you to the hospital at the request of your primary care provider , Hannah Woods. She had spoken to orthopedic surgery about the infected bone of your left 2nd and 3rd toes, and the orthopedic surgeon recommended admission to the hospital with 24 hours of antibiotics, and then probable amputation of the 2 toes. Now that you have spoken to the orthopedic surgeon, you're having second thoughts. You would prefer to go home, think the problem out and discuss it with your . In the meantime, you need to be on 2 antibiotics to help with the bone infection in your toes. Please see your primary care provider in the next week. Make sure you keep your foot clean and dry. Do not soak it in a tub, pool, ocean or leg. You can take a shower, but again keep it clean and dry immediately thereafter. If you develop fever, chills, a swollen hot red foot, you must come back to the emergency room. You have been taken care of by the [facility] at [facility] in the past. Your primary care provider may need to refer you to them again. Once you have decided on what your course of action will be, if it involves orthopedic surgery, please call the orthopedic office for a follow-up appointment. Their phone number is [phone] No Smoking: If you smoke, Please STOP! Call for help. Follow-up with: Hannah Woods ARNP [Provider Admit Priv/Credential] - Genaro Franks MD [Provider Admit Priv/Credential] -
--- NOTE | 2017-08-28 17:49 | CONSULTATION NOTE ---
DATE OF SERVICE: 08/28/2017 Physician: Genaro Franks MD CHIEF COMPLAINT: "My left second toe looks bad." HISTORY OF PRESENT ILLNESS: The patient is a 62-year-old male diabetic who has a 2-3 week history of a nonhealing necrotic wound over the tip of his left second toe. The patient has just returned from a 2-3 week trip to [place]. During that time, he did a good deal of walking. He had noticed more drainage and more a necrotic- looking tip to his toe during this trip. He was seen and evaluated in [place] for this toe wound. He was told that he had an infected toe and it would require a toe amputation. He was started on antibiotics as he refused immediate surgery. He has since returned back to his home here in [place]. Over the last week or so, he has continued to note some drainage and a necrotic tip of his toe. He has not had any fevers or chills. PAST MEDICAL HISTORY: Significant for a right [id number] amputation done by Dr. Anderson in the past because of a diabetic foot infection. The patient has a rather dense peripheral neuropathy and significant peripheral vascular disease secondary to his diabetes. His diabetes has been poorly controlled in the past as well. PHYSICAL EXAMINATION: The patient was afebrile. Examination of his left foot shows that he has necrotic soft tissue overlying the distal tip of his second toe. There is exposed bone present in the wound. He has some mild swelling and erythema just proximal to the wound edges. The base of his toe, however, appears to be minimally swollen or erythematous. There is no lymphangitis noted. He has active range of motion of the MTP joint of his second toe. His third toe shows minimal swelling or erythema. No tenderness noted. (The patient has a dense peripheral neuropathy.) No active wound or drainage noted. RADIOGRAPH STUDIES: X-rays that were taken of his toe were reviewed. There appear to be absent distal phalanges present in the second and third toes. No acute periosteal reaction is appreciated. Minimal soft tissue overlying the second toe on x-ray. ASSESSMENT: Necrotic left second toe - with exposed bone. He has bony involvement resulting in osteomyelitis. No evidence of any significant soft tissue healing for coverage of this exposed bone. PLAN: I advised the patient that his second toe wound and infection is not going to resolve with nonsurgical treatment. He currently is not very toxic at all and apparently, from the notes, has improved significantly after 12 hours of IV antibiotics while here in the hospital. He agrees that he will likely need to have surgical toe amputation to help resolve his toe infection. He, however, does not want to have this done now. Although I have advised that it makes sense to go ahead and do it on this admission, he wants to be discharged home today and will discuss treatment options with his . He will follow up with his primary care physician in a few days. Once he has decided, along with his primary care physician, that surgery is indicated, they will contact the orthopedist aoc director combat operations officer to arrange to have the toe amputation performed on a somewhat urgent basis. I did answer all the patient's questions today with regard to treatment options and timing. He again was not in favor of proceeding with surgery on this admission. TD: 08/28/2017 18:48
== END 2017-08-28 15:30 | disposition home or self-care (01) | DRG 638 ==
LOC: MS2 16:53
PROVIDERS: ADMIT Specialist; ATTEND Specialist
DX: E11.69 Type 2 diabetes mellitus with other specified complication (principal); E11.52 Type 2 diabetes mellitus with diabetic peripheral angiopathy with gangrene; M86.272 Subacute osteomyelitis, left ankle and foot; I96 Gangrene, not elsewhere classified; L03.116 Cellulitis of left lower limb; M89.572 Osteolysis, left ankle and foot; E11.65 Type 2 diabetes mellitus with hyperglycemia; E11.42 Type 2 diabetes mellitus with diabetic polyneuropathy; L89.899 Pressure ulcer of other site, unspecified stage; E11.649 Type 2 diabetes mellitus with hypoglycemia without coma; N17.9 Acute kidney failure, unspecified; T36.8X5A Adverse effect of other systemic antibiotics, initial encounter; Y92.239 Unspecified place in hospital as the place of occurrence of the external cause; G89.4 Chronic pain syndrome; F31.9 Bipolar disorder, unspecified; B19.20 Unspecified viral hepatitis C without hepatic coma; I10 Essential (primary) hypertension; E78.5 Hyperlipidemia, unspecified; Z66 Do not resuscitate; Z79.891 Long term (current) use of opiate analgesic; Z72.0 Tobacco use; Z89.511 Acquired absence of right leg below knee; Z87.898 Personal history of other specified conditions; Z79.4 Long term (current) use of insulin; Z91.14 Patient's other noncompliance with medication regimen; Z91.11 Patient's noncompliance with dietary regimen; Z91.81 History of falling
CPT/HCPCS: 36415; 73660; 80053; 83036; 85025; 85610; 85651; 86140; 87070; 87077; 87205

== ENCOUNTER 2017-09-02 06:13 | Day surgery (SDC) | payer MEDICAID ==
[2017-09-02] MEDS ORDERED: LACTATED RINGERS 1,000 ML IV ONE (06:29)
[2017-09-02] MEDS ORDERED: ceFAZolin 2 GM/50 ML 2 GM/50 ML BAG IV ONE (06:38)
[2017-09-02] MEDS ORDERED: BUPIVACAINE 0.25%-EPI 1:200000 PF 30 ML VIAL SUBQ ONE ×2 (07:59)
[2017-09-02] MEDS ORDERED: LIDOCAINE-MPF 1% 2 ML AMP SUBQ ONE ×2 (08:00)
[2017-09-02] MEDS ORDERED: PROPOFOL 200 MG/20 ML VIAL IVP ONE (08:30)
[2017-09-02 09:25] VITALS: BP 142/66
--- NOTE | 2017-09-02 17:43 | OPERATIVE REPORT ---
DATE OF SERVICE: 09/02/2017 Physician: Taylor Gordon MD DATE OF SURGERY: 09/02/2017 PREOPERATIVE DIAGNOSIS: Left second toe osteomyelitis and early ulceration of the tip of left third toe and clawing of left 4th and 5th toes with hypercallus formation. POSTOPERATIVE DIAGNOSIS: Left second toe osteomyelitis and early ulceration of the tip of left third toe and clawing of left 4th and 5th toes with hypercallus formation. PROCEDURE PERFORMED: Left foot second toe amputation with percutaneous tenotomy of toes 3, 4 and 5 and callus debridement. SURGEON: Taylor Gordon MD ANESTHESIA: Local and MAC. INDICATIONS FOR SURGERY: The patient is a 62-year-old male diabetic who has developed skin slough off the left second toe secondary to diabetic necrosis after pressure on the tip of the toe and was recently hospitalized with severe cellulitis around this toe and at that time, the patient was reluctant to have any surgical treatment. He was seen in clinic and with antibiotic care, his cellulitis has resolved, but he continues to have a foul smelling open wound of the second toe with exposed bone. Additionally, the patient has an entire forefoot at risk because of severe clawing of the residual toes with callus formation of the tips of the toes and pressure sores, especially under the fifth metatarsal head. For this reason, it was felt that tenotomies might help relieve pressure on the tips of the toes and avoid further ulceration and loss of toes. DESCRIPTION OF OPERATIVE PROCEDURE: The patient was taken to the operating room, was given a MAC anesthetic. His foot was sterilely prepped and draped in standard fashion. Infiltration was performed around the base of the second toe with 1% lidocaine and 0.25% Marcaine. After a surgical timeout, the second toe was elliptically excised at its base and removed, allowing adequate tissue for a [id number] skin closure. This wound was irrigated thoroughly prior to placement of suture. The third toe tip was carefully inspected and the callus at the tip of this claw toe was debrided slightly to ensure that there was not exposed bone, but there was a pinpoint area that seemed to penetrate deep. A percutaneous tenotomy was made with an 18 gauge needle at the plantar surface through a small puncture wound and this allowed some correction of that toe's clawing. The fourth toe was not amenable to correction, it was too severely clawed and there was some skin tearing with attempts at extension of that toe. The fifth toe also did not correct significantly with a puncture wound only. At the conclusion of these tenotomies, the wounds were all irrigated. It was elected to place 2 stitches in the plantar fourth toe because of the mild skin tearing. Dressings were placed on all of the wounds and the patient was placed in a well-padded fiberglass splint, which would allow heel weightbearing postop for transfers. The patient was taken to the recovery room in stable condition. Plan is for immobilization in the splint for a week, followed by wound check and dressing changes to the foot, weightbearing on the heel only, and continued antibiotic coverage with double antibiotic oral pills. TD: 09/02/2017 18:41
== END 2017-09-02 06:14 | disposition home or self-care (01) ==
LOC: SDS 06:13
PROVIDERS: ATTEND Orthopaedic Surgery
PROC: 0HBNXZZ Excision of Left Foot Skin, External Approach (ICD-10-PCS; 2017-09-02)
PROC: 0Y6S0Z0 Detachment at Left 2nd Toe, Complete, Open Approach (ICD-10-PCS; principal; 2017-09-02 07:30)
PROC: 0LNW3ZZ Release Left Foot Tendon, Percutaneous Approach (ICD-10-PCS; 2017-09-02 07:30)
DX: M86.672 Other chronic osteomyelitis, left ankle and foot (principal); M20.5X2 Other deformities of toe(s) (acquired), left foot; E11.69 Type 2 diabetes mellitus with other specified complication; L84 Corns and callosities; I10 Essential (primary) hypertension; F17.210 Nicotine dependence, cigarettes, uncomplicated; Z79.4 Long term (current) use of insulin; M79.675 Pain in left toe(s)
CPT/HCPCS: 11055; 28011; 28820; J0690; J7120

== ENCOUNTER 2017-11-19 08:00 | Outpatient (CLI) | payer MEDICAID | END 2017-11-19 08:01 | disposition home or self-care (01) | LOC: LAB.R 08:00 | PROVIDERS: ATTEND Podiatrist | DX: E11.622 Type 2 diabetes mellitus with other skin ulcer (principal) | CPT/HCPCS: 87070; 87077; 87205 ==

== ENCOUNTER 2017-12-09 08:23 | Day surgery (SDC) | payer MEDICAID ==
[2017-12-09] MEDS ORDERED: LACTATED RINGERS 1,000 ML IV ONE (08:42)
[2017-12-09] MEDS ORDERED: ceFAZolin 2 GM/50 ML 2 GM/50 ML BAG IV ONE (08:49)
[2017-12-09] MEDS ORDERED: ACETAMINOPHEN 1,000 MG/100 ML 100 ML IV ONE (08:50)
[2017-12-09] MEDS ORDERED: BUPIVACAINE 0.5% PF 30 ML VIAL INFIL ONE (09:46)
[2017-12-09] MEDS ORDERED: LIDOCAINE 1% 50 ML MDV SUBQ ONE (09:46)
[2017-12-09] MEDS ORDERED: fentaNYL 100 MCG/2 ML VIAL IVP ONE (10:16)
[2017-12-09] MEDS ORDERED: PROPOFOL 200 MG/20 ML VIAL IVP ONE (10:16)
[2017-12-09 10:39] VITALS: BP 139/61
--- NOTE | 2017-12-09 20:44 | OPERATIVE REPORT ---
DATE OF SERVICE: 12/09/2017 Physician: Taylor Gordon MD PREOPERATIVE DIAGNOSIS: Left foot fifth toe diabetic ulceration and osteomyelitis. POSTOPERATIVE DIAGNOSIS: Left foot fifth toe diabetic ulceration and osteomyelitis. NAME OF PROCEDURE: Left fifth toe amputation and partial amputation of fifth metatarsal shaft. SURGEON: Taylor Grodon MD ANESTHESIA: General. INDICATIONS FOR SURGERY: Chang is a 62-year-old male with diabetic ulceration of his foot, who has gone on to a dorsal ulceration of his fifth toe, exposing the IP joint causing septic arthritis and osteomyelitis. The patient also has chronic dime size ulceration on the plantar surface of the foot below the fifth metatarsal head, which is a grade II lesion and not penetrating to bone. Recommendation is that the patient undergo fifth toe amputation with removal also of the distal half of the fifth metatarsal for decompression of his plantar ulcer. DESCRIPTION OF OPERATIVE PROCEDURE: The patient was taken to the operating room and was given a MAC anesthetic, after which his left foot was marked for surgery, a surgical timeout held and infiltration performed with 1% lidocaine and 0.25% Marcaine plain. The tennis racquet-shaped incision was made around the base of the fifth toe and the incision was taken directly to bone. The toe was removed and then the metatarsal addressed by reflecting off periosteum at the midpoint and creating an oblique and smooth transection through the mid metatarsal and removing that segment of bone. This freed up the soft tissue flap, which was irrigated, seemed to have healthy bleeding margins. The plantar ulcer was inspected and debrided slightly back to a fresh wound margin and as this plantar flap was advanced up for an interrupted closure with 4-0 nylon, it caused the ulcer to be transposed somewhat to the more lateral side of the foot away from the plantar aspect. The flap was able to be closed with minimal tension. Soft tissue dressings were applied. The patient was taken to recovery room in a postop shoe in stable condition. ESTIMATED BLOOD LOSS: Minimal. COMPLICATIONS: None. COUNTS: Sponge and needle counts correct. TD: 12/09/2017 20:44
== END 2017-12-09 08:24 | disposition home or self-care (01) ==
LOC: SDS 08:23
PROVIDERS: ATTEND Orthopaedic Surgery
PROC: 0Y6N0Z8 Detachment at Left Foot, Complete 5th Ray, Open Approach (ICD-10-PCS; principal; 2017-12-09 08:15)
DX: M86.172 Other acute osteomyelitis, left ankle and foot (principal); E11.621 Type 2 diabetes mellitus with foot ulcer; L97.521 Non-pressure chronic ulcer of other part of left foot limited to breakdown of skin; E11.40 Type 2 diabetes mellitus with diabetic neuropathy, unspecified; F17.210 Nicotine dependence, cigarettes, uncomplicated; L02.612 Cutaneous abscess of left foot; E78.5 Hyperlipidemia, unspecified; F31.30 Bipolar disorder, current episode depressed, mild or moderate severity, unspecified; Z89.511 Acquired absence of right leg below knee; Z79.4 Long term (current) use of insulin
CPT/HCPCS: 28810; J0131; J0690; J7120; 88305; 88311

== ENCOUNTER 2018-04-23 12:02 | Emergency (ER) | payer MEDICAID ==
[2018-04-23] MEDS ORDERED: MORPHINE 2 MG/ML CARPUJECT IVP STA (12:41)
[2018-04-23] MEDS ORDERED: PROMETHAZINE INJ 25 MG in SODIUM CHLORIDE 0.9% 50 ML IV STA (12:41)
[2018-04-23] MEDS ORDERED: SODIUM CHLORIDE 0.9% 1,000 ML IV ONE ×2 (12:41→13:55)
--- NOTE | 2018-04-23 12:44 | ED Physician Documentation ---
PD HPI HEADACHE - Stated complaint Stated Complaint: HEADACHE/NAUSEA - Chief complaint Chief Complaint: Neuro - History obtained from History obtained from: Patient, Family - History of Present Illness Timing - onset: How many days ago (4) Timing - onset during: Rest Timing - duration: Days (4) Timing - details: Gradual onset Pain level max: 8 Pain level now: 8 Location: Front Quality: Throbbing, Aching Associated symptoms: Nausea, Vomiting, Weakness. No: Fever, Stiff neck Improved by: Rest, Dark room Worsened by: Light, Noise Contributing factors: Trauma (states started 2 days after tripping and falling, striking his forehead forcefully.). No: Anticoagulated Similar symptoms before: Has not had sx before Review of Systems Ten Systems: 10 systems reviewed and negative Constitutional: denies: Fever, Chills Respiratory: denies: Cough GI: reports: Nausea, Vomiting Skin: denies: Rash Musculoskeletal: denies: Neck pain, Back pain Neurologic: reports: Generalized weakness. denies: Focal weakness, Numbness, Syncope, Seizure, Confused, Altered mental status, Headache PD PAST MEDICAL HISTORY - Past Medical History Cardiovascular: Hypertension, High cholesterol Respiratory: None Endocrine/Autoimmune: Type 2 diabetes GI: GERD, Chronic diarrhea, Chronic constipation, Pancreatitis : Incontinence, Other HEENT: Chronic vision loss Psych: Depression, Anxiety, Bipolar disorder, Panic attacks, Post traumatic stress disorder Musculoskeletal: Other Derm: None - Past Surgical History Past Surgical History: Yes General: Other Ortho: Amputation - Present Medications Home Medications: Ambulatory Orders Medication Instructions Recorded Confirmed ARIPiprazole [Abilify] 15 mg PO QPM 03/02/13 12/10/17 Lisinopril 10 mg PO BID 03/02/13 12/10/17 Sertraline [Zoloft] 50 mg PO BID 03/02/13 12/10/17 Insulin Regular, Human [Humulin R] 10 unit SQ TIDWM 03/25/15 12/10/17 Methadone 15 mg PO QPM 03/25/15 12/10/17 lamoTRIgine [Lamictal] 150 mg PO BID 03/25/15 12/10/17 metFORMIN [Glucophage] 1,000 mg PO BIDWM 03/25/15 12/10/17 Pravastatin Sodium 40 mg PO QPM 03/26/15 12/10/17 Methadone 20 mg PO AC 04/27/16 12/10/17 Cyanocobalamin (Vitamin B-12) 500 mcg PO QPM 08/27/17 12/10/17 [Vitamin B-12 (500 mcg sublingual)] Gabapentin 800 mg PO TID 08/27/17 12/10/17 Multivitamin [Theragran] 1 tab PO DAILY 08/27/17 12/10/17 tiZANidine [Zanaflex] 8 mg PO QPM 08/27/17 12/10/17 Amox/Clav 875/125 [Augmentin] 1 each PO Q12H #14 tablet 08/28/17 12/10/17 Insulin Glargine [Lantus Solostar] 40 units SQ BID 12/09/17 12/10/17 Promethazine [Phenergan] 25 mg PO Q6H PRN #10 tab 04/23/18 - Allergies Allergies/Adverse Reactions: Allergies Allergy/AdvReac Type Severity Reaction Status Date / Time atorvastatin calcium * Allergy Unknown Unknown Verified 06/23/17 12:31 [From Lipitor] - Social History Does the pt smoke?: Yes Smoking Status: Current every day smoker Does the pt drink ETOH?: No Does the pt have substance abuse?: No - Immunizations Immunizations are current?: No Immunizations: TDAP >10years/unknown PD ED PE NORMAL - Vitals Vital signs reviewed: Yes - General General: Alert and oriented X 3, No acute distress - HEENT HEENT: Atraumatic, PERRL, EOMI, Ears normal, Moist mucous membranes, Pharynx benign - Neck Neck: Supple, no meningeal sign, No bony TTP - Cardiac Cardiac: RRR, Strong equal pulses - Respiratory Respiratory: No respiratory distress, Clear bilaterally - Abdomen Abdomen: Soft, Non tender, Non distended - Back Back: No spinal TTP - Derm Derm: Warm and dry - Extremities Extremities: Other (R BKA) - Neuro Neuro: Alert and oriented X 3, 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, No motor deficit, No sensory deficit, Normal speech Eye Opening: Spontaneous Motor: Obeys Commands Verbal: Oriented GCS Score: 15 - Psych Psych: Normal mood, Normal affect Results - Vitals Vitals: Vital Signs - 24 hr 04/23/18 04/23/18 12:09 14:38 Temperature 36.4 C L 36.5 C Heart Rate 61 56 L Respiratory 18 20 Rate Blood Pressure 189/82 H 189/88 H O2 Saturation 98 100 Oxygen O2 Source Room air - Labs Labs: Laboratory Tests 04/23/18 04/23/18 04/23/18 12:47 12:54 12:54 WBC 9.1 RBC 4.34 L Hgb 13.0 L Hct 37.5 L MCV 86.5 MCH 29.9 MCHC 34.6 RDW 15.2 H Plt Count 127 L MPV 8.4 Neut # (Auto) 8.2 H Lymph # (Auto) 0.6 L [place] # (Auto) 0.3 Eos # (Auto) 0.0 Baso # (Auto) 0.0 Absolute Nucleated RBC 0.00 Nucleated RBC % 0.0 Sodium 140 Potassium 4.5 Chloride 104 Carbon Dioxide 27 Anion Gap 9.0 BUN 31 H Creatinine 1.2 Estimated GFR (MDRD) 62 L Glucose 131 H POC Whole Bld Glucose 109 H Calcium 10.0 Total Bilirubin 0.4 AST 21 ALT 16 Alkaline Phosphatase 111 Total Protein 7.8 Albumin 4.2 Globulin 3.6 Albumin/Globulin Ratio 1.2 Lipase 59 H - Rads (name of study) head CT Radiology: Prelim report reviewed, EMP read contemporaneously, See rad report ( No acute intracranial abnormality or skull fractures) PD MEDICAL DECISION MAKING - ED course Complexity details: reviewed results, re-evaluated patient, considered differential, d/w patient, d/w family ED course: Patient is a 62-year-old male who presents to the emergency department with what appears to be postconcussive headaches. Headaches improved in the emergency department with morphine, Compazine and Benadryl. Also given IV fluids. Tolerating p.o. without difficulty. We will continue supportive care at home and follow-up with his PCP. Patient and family counseled regarding signs and symptoms for which I believe and urgent re-evaluation would be necessary. Patient with good understanding of and agreement to plan and is comfortable going home at this time This document was made in part using voice recognition software. While efforts are made to proofread this document, sound alike and grammatical errors may occur. - Sepsis Event Vital Signs: Vital Signs - 24 hr 04/23/18 04/23/18 12:09 14:38 Temperature 36.4 C L 36.5 C Heart Rate 61 56 L Respiratory 18 20 Rate Blood Pressure 189/82 H 189/88 H O2 Saturation 98 100 Oxygen O2 Source Room air Departure - Departure Disposition: 01 Home, Self Care Clinical Impression: Post-concussion headache Concussion Qualifiers: Encounter type: initial encounter Loss of consciousness presence/duration: without LOC Qualified Code(s): S06.0X0A - Concussion without loss of consciousness, initial encounter Condition: Good Instructions: ED Concussion Follow-Up: Hannah Woods ARNP [Primary Care Provider] - Within 1 week Prescriptions: Promethazine [Phenergan] 25 mg PO Q6H PRN #10 tab PRN Reason: Nausea / Vomiting Comments: Return if you worsen. Drink plenty of fluids and rest at home. Discharge Date/Time: 04/23/18 14:56
[2018-04-23 12:58] LABS: BASOPHILS % (AUTO) 0.4 %; EOSINOPHILS % (AUTO) 0.3 %; LYMPHOCYTES # (AUTO) 0.6 10^3/uL (1.5-3.5); LYMPHOCYTES % (AUTO) 6.6 %; MEAN CORPUSCULAR HEMOGLOBIN 29.9 pg (27.0-31.0); MEAN CORPUSCULAR HGB CONC 34.6 g/dL (32.0-36.0); MEAN CORPUSCULAR VOLUME 86.5 fL (80.0-94.0); MEAN PLATELET VOLUME 8.4 fL (7.4-11.4); MONOCYTES # (AUTO) 0.3 10^3/uL (0.0-1.0); MONOCYTES % (AUTO) 2.9 %; NEUTROPHILS # (AUTO) 8.2 10^3/uL (1.5-6.6); NEUTROPHILS % (AUTO) 89.8 %; PLT - PLATELET COUNT 127 10^3/uL (130-450); RED BLOOD COUNT 4.34 10^6/uL (4.70-6.10); RED CELL DISTRIBUTION WIDTH 15.2 % (12.0-15.0); WHITE BLOOD COUNT 9.1 x10^3/uL (4.8-10.8)
[2018-04-23 13:10] LABS: ALBUMIN 4.2 g/dL (3.2-5.5); ALBUMIN/GLOBULIN RATIO 1.2 (1.0-2.2); BILIRUBIN,TOTAL 0.4 mg/dL (0.2-1.0); CREATININE 1.2 mg/dL (0.6-1.2); TOTAL PROTEIN 7.8 g/dL (6.7-8.2)
--- NOTE | 2018-04-23 13:40 | CT Report ---
Reason: fall several days ago, persistent headache Procedure Date: 04/23/2018 Accession Number: [id number] / [id number] Procedure: CT - Head W/O CPT Code: FULL RESULT: EXAM: CT HEAD EXAM DATE: 04/23/2018 01:17 PM. CLINICAL HISTORY: Fall several days ago, persistent headache. COMPARISON: 06/05/2013 axial only. TECHNIQUE: Multiaxial CT images were obtained from the foramen magnum to the vertex. Reformats: Sagittal and coronal. IV contrast: None. In accordance with CT protocol optimization, one or more of the following dose reduction techniques were utilized for this exam: automated exposure control, adjustment of mA and/or KV based on patient size, or use of iterative reconstructive technique. FINDINGS: Parenchyma: No intraparenchymal hemorrhage. No evidence of mass, midline shift, or CT findings of infarction. Barraza-white differentiation is distinct. Extraaxial Spaces: Normal for age. No subdural or epidural collections identified. Ventricles: Normal in size and position. Sinuses and Orbits: Imaged paranasal sinuses, orbits, and mastoids show no significant abnormality. Bones: Healing of the previous right maxillary and right orbital fractures with some persistent chronic deformity including medial depression of the right medial orbital wall. Angulated nasal bone fractures appear similar. Other: None. IMPRESSION: 1. No definite acute abnormality of the head. 2. Old, healed right maxillary and orbital fractures. 3. Mildly angulated nasal bone fractures, without substantial change. RADIA
[2018-04-23] MEDS ORDERED: PROCHLORPERAZINE 10 MG/2 ML VIAL IVP STA (13:55)
[2018-04-23] MEDS ORDERED: diphenhydrAMINE INJ 50 MG/ML VIAL IVP STA (13:55)
[2018-04-23 14:40] VITALS: BP 189/88
== END 2018-04-23 14:56 | disposition home or self-care (01) ==
LOC: ED 12:02
DX: G44.309 Post-traumatic headache, unspecified, not intractable (principal); S06.0X0A Concussion without loss of consciousness, initial encounter; I10 Essential (primary) hypertension; E11.9 Type 2 diabetes mellitus without complications; Z79.4 Long term (current) use of insulin; F17.200 Nicotine dependence, unspecified, uncomplicated; W01.10XA Fall on same level from slipping, tripping and stumbling with subsequent striking against unspecified object, initial encounter
CPT/HCPCS: 70450; 80053; 83690; 85025; 96365; 96375; 99283; J1200; J7040; 36415

== ENCOUNTER 2018-07-04 14:00 | Outpatient (CLI) | payer MEDICAID | END 2018-07-04 14:01 | disposition home or self-care (01) | LOC: RT.S 14:00 | PROVIDERS: ATTEND Acupuncturist | DX: Z79.891 Long term (current) use of opiate analgesic (principal) | CPT/HCPCS: 93005 ==

== ENCOUNTER 2018-07-29 13:43 | Outpatient (CLI) | payer MEDICAID ==
[2018-07-29 18:11] LABS: HB2 TOTAL 12.8 g/dL; HEMOGLOBIN A1C 0.86 g/dL; HEMOGLOBIN A1C % 8.3 % (4.6-6.2)
== END 2018-07-29 13:44 | disposition home or self-care (01) ==
LOC: LAB.F 13:43
PROVIDERS: ATTEND Nurse Practitioner Family
DX: E11.621 Type 2 diabetes mellitus with foot ulcer (principal)
CPT/HCPCS: 36415; 83036

== ENCOUNTER 2018-11-06 14:30 | Emergency (ER) | payer MEDICAID ==
[2018-11-06] MEDS ORDERED: cefTRIAXone 1 GM VIAL IM STA (15:01)
[2018-11-06] MEDS ORDERED: LIDOCAINE 1% 2 ML VIAL MC ONE (15:01)
[2018-11-06] MEDS ORDERED: LIDOCAINE 1% 2 ML VIAL ONE (15:15)
[2018-11-06 15:35] LABS: BASOPHILS % (AUTO) 0.6 %; EOSINOPHILS % (AUTO) 0.9 %; HGB - HEMOGLOBIN 11.5 g/dL (14.0-18.0); LYMPHOCYTES # (AUTO) 0.6 10^3/uL (1.5-3.5); LYMPHOCYTES % (AUTO) 11.7 %; MEAN CORPUSCULAR HEMOGLOBIN 29.7 pg (27.0-31.0); MEAN CORPUSCULAR HGB CONC 34.1 g/dL (32.0-36.0); MEAN CORPUSCULAR VOLUME 87.3 fL (80.0-94.0); MEAN PLATELET VOLUME 9.5 fL (7.4-11.4); MONOCYTES # (AUTO) 0.7 10^3/uL (0.0-1.0); MONOCYTES % (AUTO) 13.6 %; NEUTROPHILS # (AUTO) 3.6 10^3/uL (1.5-6.6); NEUTROPHILS % (AUTO) 73.2 %; PLT - PLATELET COUNT 91 10^3/uL (130-450); RED BLOOD COUNT 3.86 10^6/uL (4.70-6.10); RED CELL DISTRIBUTION WIDTH 14.9 % (12.0-15.0); WHITE BLOOD COUNT 4.9 x10^3/uL (4.8-10.8)
[2018-11-06 15:37] LABS: ALBUMIN 3.6 g/dL (3.2-5.5); ALBUMIN/GLOBULIN RATIO 1.1 (1.0-2.2); BILIRUBIN,TOTAL 0.6 mg/dL (0.2-1.0); CALCIUM 8.9 mg/dL (8.5-10.3); CREATININE 2.3 mg/dL (0.6-1.2)
[2018-11-06] MEDS ORDERED: INSULIN REGULAR HUMAN 100 UNIT/1 ML 10 ML MDV SUBQ STA (16:00)
--- NOTE | 2018-11-06 16:00 | ED Physician Documentation ---
PD HPI LOWER EXT INJURY - Stated complaint Stated Complaint: DIABETIC/ LT FOOT BLISTERS - Chief complaint Chief Complaint: Wound - History obtained from History obtained from: Patient - History of Present Illness PD HPI LOW EXT INJURY LOCATION: Left, Foot Type of injury: Other (blister) Timing - onset: How many days ago (2) Associated symptoms: Discolored Contributing factors: Other (Diabetes with peripheral neuropathy.) - Additional information Additional information: The patient is a 63-year-old male with history of insulin-dependent diabetes with diabetic neuropathy, who presents with blisters on his left foot. There were first noticed 2 days ago. Today his foot was noticed to be slightly red and warm to touch. His blood sugar this morning was greater than 300. After insulin it came down to 126. He has a history of diabetic foot ulcers for which he has been seen a assistant cook. He is status post right below-knee amputation. Review of Systems Constitutional: denies: Fever Nose: denies: Congestion Throat: denies: Sore throat Cardiac: denies: Chest pain / pressure Respiratory: denies: Dyspnea, Cough GI: denies: Abdominal Pain, Nausea, Vomiting : denies: Dysuria Skin: reports: Other ("blister on left foot"). denies: Rash Musculoskeletal: denies: Extremity pain Neurologic: reports: Numbness (Peripheral neuropathy). denies: Headache PD PAST MEDICAL HISTORY - Past Medical History Past Medical History: Yes Cardiovascular: Hypertension, High cholesterol Respiratory: None Endocrine/Autoimmune: Type 2 diabetes GI: GERD, Chronic diarrhea, Chronic constipation, Pancreatitis : Incontinence, Other HEENT: Chronic vision loss Psych: Depression, Anxiety, Bipolar disorder, Panic attacks, Post traumatic stress disorder Musculoskeletal: Other Derm: None - Past Surgical History Past Surgical History: Yes General: Other Ortho: Amputation - Present Medications Home Medications: Ambulatory Orders Medication Instructions Recorded Confirmed ARIPiprazole [Abilify] 15 mg PO QPM 03/02/13 12/10/17 Lisinopril 10 mg PO BID 03/02/13 12/10/17 Sertraline [Zoloft] 50 mg PO BID 03/02/13 12/10/17 Insulin Regular, Human [Humulin R] 10 unit SQ TIDWM 03/25/15 12/10/17 Methadone 15 mg PO QPM 03/25/15 12/10/17 lamoTRIgine [Lamictal] 150 mg PO BID 03/25/15 12/10/17 metFORMIN [Glucophage] 1,000 mg PO BIDWM 03/25/15 12/10/17 Pravastatin Sodium 40 mg PO QPM 03/26/15 12/10/17 Methadone 20 mg PO AC 04/27/16 12/10/17 Cyanocobalamin (Vitamin B-12) 500 mcg PO QPM 08/27/17 12/10/17 [Vitamin B-12 (500 mcg sublingual)] Gabapentin 800 mg PO TID 08/27/17 12/10/17 Multivitamin [Theragran] 1 tab PO DAILY 08/27/17 12/10/17 tiZANidine [Zanaflex] 8 mg PO QPM 08/27/17 12/10/17 Amox/Clav 875/125 [Augmentin] 1 each PO Q12H #14 tablet 08/28/17 12/10/17 Insulin Glargine [Lantus Solostar] 40 units SQ BID 12/09/17 12/10/17 Promethazine [Phenergan] 25 mg PO Q6H PRN #10 tab 04/23/18 cephALEXin [Cephalexin] 500 mg PO TID #21 tablet 11/06/18 - Allergies Allergies/Adverse Reactions: Allergies Allergy/AdvReac Type Severity Reaction Status Date / Time atorvastatin calcium * Allergy Unknown Unknown Verified 06/23/17 12:31 [From Lipitor] - Social History Does the pt smoke?: Yes Smoking Status: Current every day smoker Does the pt drink ETOH?: No Does the pt have substance abuse?: No - Immunizations Immunizations are current?: No Immunizations: TDAP >10years/unknown PD ED PE NORMAL - Vitals Vital signs reviewed: Yes (normal) - General General: Alert and oriented X 3, Well developed/nourished - HEENT HEENT: Atraumatic - Neck Neck: No adenopathy - Cardiac Cardiac: RRR - Respiratory Respiratory: No respiratory distress, Clear bilaterally - Abdomen Abdomen: Soft, Non tender - Back Back: No CVA TTP - Derm Derm: No rash - Extremities Extremities: Other (Right BKA. The left foot has a large ulceration on the plantar aspect of the foot, about 2 x 2.5 cm in size, with surrounding slight erythema. There is no lymphangitic streaking. There is mild associated warmth to palpation. An eschar is noted on the medial aspect of the left great toe. There is no surrounding erythema.) - Neuro Neuro: Alert and oriented X 3, No motor deficit, Normal speech Results - Vitals Vitals: Vital Signs - 24 hr 11/06/18 11/06/18 14:36 17:37 Temperature 36.7 C 37.2 C Heart Rate 74 65 Respiratory 18 16 Rate Blood Pressure 119/59 L 120/61 O2 Saturation 98 96 Oxygen O2 Source Room air - Labs Labs: Laboratory Tests 11/06/18 11/06/18 15:15 15:29 WBC 4.9 RBC 3.86 L Hgb 11.5 L Hct 33.7 L MCV 87.3 MCH 29.7 MCHC 34.1 RDW 14.9 Plt Count 91 L MPV 9.5 Neut # (Auto) 3.6 Lymph # (Auto) 0.6 L [place] # (Auto) 0.7 Eos # (Auto) 0.0 Baso # (Auto) 0.0 Absolute Nucleated RBC 0.00 Nucleated RBC % 0.0 Sodium 132 L Potassium 5.0 Chloride 100 L Carbon Dioxide 22 Anion Gap 10.0 BUN 62 H Creatinine 2.3 H Estimated GFR (MDRD) 29 L Glucose 314 H Calcium 8.9 Total Bilirubin 0.6 AST 41 ALT 26 Alkaline Phosphatase 149 H Total Protein 7.0 Albumin 3.6 Globulin 3.4 Albumin/Globulin Ratio 1.1 Lipase 48 PD MEDICAL DECISION MAKING - ED course Complexity details: reviewed old records, reviewed results, re-evaluated patient, considered differential, d/w patient, d/w family ED course: The patient's presentation is significant for a diabetic foot ulcer with cellulitis. His white blood cell count is normal at 4.9. His blood sugar was initially elevated at 314. His BUN and creatinine are elevated at 62 and 2.3. Treatment in the emergency department included administration of regular insulin 10 units subcutaneously. Repeat blood sugar is improved at 229. The wound was thoroughly cleaned and gauze dressing was applied. Ceftriaxone 1 g was administered IM. He has a follow-up appointment scheduled with his assistant cook in 2 days. He is being discharged with a prescription for cephalexin. 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 Take cephalexin 3 times daily as prescribed. Clean the wound daily and apply new antibiotic ointment. Follow-up with your assistant cook on Wednesday as scheduled. Return to the emergency department if you develop increasing redness, swelling, fever, or otherwise worsening symptoms. Discharge Date/Time: 11/06/18 17:38
[2018-11-06 17:38] VITALS: BP 120/61
== END 2018-11-06 17:38 | disposition home or self-care (01) ==
LOC: ED 14:30
DX: E11.621 Type 2 diabetes mellitus with foot ulcer (principal); L97.529 Non-pressure chronic ulcer of other part of left foot with unspecified severity; L03.116 Cellulitis of left lower limb; Z79.4 Long term (current) use of insulin; I10 Essential (primary) hypertension; E78.00 Pure hypercholesterolemia, unspecified; E11.42 Type 2 diabetes mellitus with diabetic polyneuropathy; Z89.511 Acquired absence of right leg below knee
CPT/HCPCS: 36415; 80053; 83690; 85025; 96372; 99283; J1815

== ENCOUNTER 2019-02-25 13:20 | Emergency (ER) | payer MEDICAID ==
[2019-02-25 13:27] VITALS: BP 103/49
[2019-02-25] MEDS ORDERED: AMOX/CLAV 875 MG/125 MG TABLET PO STA (13:49)
--- NOTE | 2019-02-25 13:51 | ED Physician Documentation ---
History of Present Illness - Stated complaint Stated Complaint: MED REFILL - Chief complaint Chief Complaint: General - History obtained from History obtained from: Patient, Family - History of Present Illness Timing: Today (63-year-old gentleman with diabetes who is already lost his right leg chronic wounds to the left leg which are being managed in wound care. He was referred here for antibiotic treatment based on a preliminary culture done a few days ago showing Proteus. No fevers or chills, no nausea.) Review of Systems Ten Systems: 10 systems reviewed and negative Constitutional: denies: Fever, Chills GI: denies: Abdominal Pain, Nausea, Vomiting Skin: denies: Rash, Lesions PD PAST MEDICAL HISTORY - Past Medical History Past Medical History: Yes Cardiovascular: Hypertension, High cholesterol Respiratory: None Neuro: Peripheral neuropathy Endocrine/Autoimmune: Type 2 diabetes GI: GERD, Chronic diarrhea, Chronic constipation, Pancreatitis : Incontinence, Other HEENT: Chronic vision loss Psych: Depression, Anxiety, Bipolar disorder, Panic attacks, Post traumatic stress disorder Musculoskeletal: Other Derm: None - Past Surgical History Past Surgical History: Yes General: Other Ortho: Amputation - Present Medications Home Medications: Ambulatory Orders Medication Instructions Recorded Confirmed ARIPiprazole [Abilify] 15 mg PO QPM 03/02/13 11/16/18 Lisinopril 10 mg PO BID 03/02/13 11/16/18 Sertraline [Zoloft] 50 mg PO BID 03/02/13 11/16/18 Insulin Regular, Human [Humulin R] 10 unit SQ TIDWM 03/25/15 11/16/18 Methadone 15 mg PO QPM 03/25/15 11/16/18 lamoTRIgine [Lamictal] 150 mg PO BID 03/25/15 11/16/18 metFORMIN [Glucophage] 1,000 mg PO BIDWM 03/25/15 11/16/18 Pravastatin Sodium 40 mg PO QPM 03/26/15 11/16/18 Methadone 20 mg PO AC 04/27/16 11/16/18 Cyanocobalamin (Vitamin B-12) 500 mcg PO QPM 08/27/17 11/16/18 [Vitamin B-12 (500 mcg sublingual)] Gabapentin 800 mg PO TID 08/27/17 11/16/18 Multivitamin [Theragran] 1 tab PO DAILY 08/27/17 11/16/18 tiZANidine [Zanaflex] 8 mg PO QPM 08/27/17 11/16/18 Insulin Glargine [Lantus Solostar] 40 units SQ BID 12/09/17 11/16/18 Promethazine [Phenergan] 25 mg PO Q6H PRN #10 tab 04/23/18 11/16/18 cephALEXin [Cephalexin] 500 mg PO TID #21 tablet 11/06/18 11/16/18 Amox/Clav 875/125 [Augmentin] 1 each PO Q12H #20 tablet 02/25/19 - Allergies Allergies/Adverse Reactions: Allergies Allergy/AdvReac Type Severity Reaction Status Date / Time atorvastatin calcium * Allergy Unknown Unknown Verified 02/25/19 13:28 [From Lipitor] - Social History Does the pt smoke?: Yes Smoking Status: Current every day smoker Does the pt drink ETOH?: No Does the pt have substance abuse?: No - Immunizations Immunizations are current?: No Immunizations: TDAP >10years/unknown PD ED PE NORMAL - Vitals Vital signs reviewed: Yes - General General: No acute distress, Well developed/nourished - Extremities Extremities: Other (3 bandaged wounds on the left leg, one on the calf, one on the heel, one on the great toe. He is already lost the right leg and a few toes on the left. There is no tracking cellulitis. The wound was not undressed as the dressing is only 1 hr old) - Psych Psych: Normal mood, Normal affect Results - Vitals Vitals: Vital Signs - 24 hr 02/25/19 13:24 Temperature 36.0 C L Heart Rate 61 Respiratory 16 Rate Blood Pressure 103/49 L O2 Saturation 98 Oxygen O2 Source Room air PD MEDICAL DECISION MAKING - ED course ED course: He has a wound culture growing Proteus. Previous cultures and the local antibiogram were reviewed and Augmentin was chosen. Departure - Departure Disposition: 01 Home, Self Care Clinical Impression: Diabetic foot infection, Type 2 diabetes mellitus, uncontrolled, with lower extremity ulcer Condition: Good Record reviewed to determine appropriate education?: Yes Health Concerns: toe infection Plan of Treatment: control infection Care Goals: control infection Assessment: as above Instructions: Diabetic Foot Ulcer Dc Prescriptions: Amox/Clav 875/125 [Augmentin] 1 each PO Q12H #20 tablet Comments: Return anytime if worsening, if there is redness coming up the foot, fevers or chills. Follow-up in wound care next week as scheduled.
== END 2019-02-25 13:55 | disposition home or self-care (01) ==
LOC: ED 13:20
DX: E11.621 Type 2 diabetes mellitus with foot ulcer (principal); E11.42 Type 2 diabetes mellitus with diabetic polyneuropathy; I10 Essential (primary) hypertension; Z79.4 Long term (current) use of insulin; Z89.611 Acquired absence of right leg above knee; F17.200 Nicotine dependence, unspecified, uncomplicated
CPT/HCPCS: 99281; 99283; A9270

== ENCOUNTER 2019-03-31 10:43 | Outpatient (CLI) | payer MEDICAID ==
[2019-03-31 17:36] LABS: BASOPHILS % (AUTO) 0.6 %; EOSINOPHILS # (AUTO) 0.1 10^3/uL (0.0-0.7); EOSINOPHILS % (AUTO) 1.9 %; HGB - HEMOGLOBIN 11.5 g/dL (14.0-18.0); LYMPHOCYTES # (AUTO) 1.7 10^3/uL (1.5-3.5); LYMPHOCYTES % (AUTO) 25.9 %; MEAN CORPUSCULAR HEMOGLOBIN 28.6 pg (27.0-31.0); MEAN CORPUSCULAR HGB CONC 30.3 g/dL (32.0-36.0); MEAN CORPUSCULAR VOLUME 94.5 fL (80.0-94.0); MEAN PLATELET VOLUME 12.2 fL (7.4-11.4); MONOCYTES # (AUTO) 0.4 10^3/uL (0.0-1.0); MONOCYTES % (AUTO) 6.4 %; NEUTROPHILS # (AUTO) 4.1 10^3/uL (1.5-6.6); NEUTROPHILS % (AUTO) 64.9 %; PLT - PLATELET COUNT 132 10^3/uL (130-450); RED BLOOD COUNT 4.02 10^6/uL (4.70-6.10); RED CELL DISTRIBUTION WIDTH 14.8 % (12.0-15.0); WHITE BLOOD COUNT 6.4 x10^3/uL (4.8-10.8)
[2019-03-31 18:05] LABS: ALKALINE PHOSPHATASE 142 IU/L (42-121); ALT ALANINE AMINOTRANSFERASE 18 IU/L (10-60); AST ASPARTATE AMINOTRANSFERASE 20 IU/L (10-42); BILIRUBIN,TOTAL 0.4 mg/dL (0.2-1.0); BUN - BLOOD UREA NITROGEN 60 mg/dL (6-20); CALCIUM 9.5 mg/dL (8.5-10.3); CARBON DIOXIDE - CO2 20 mmol/L (21-32); CHLORIDE 113 mmol/L (101-111); CHOL/HDL RATIO 4.1 (<5.0); CHOLESTEROL 107 mg/dL; CREATININE 2.2 mg/dL (0.6-1.2); GFR - MDRD 31 (>89); GLUCOSE 63 mg/dL (70-100); HDL CHOLESTEROL 26 mg/dL; LDL CHOLESTEROL,CALCULATED 45 mg/dL; LDL/HDL RATIO 1.7 (<3.6); SODIUM 142 mmol/L (135-145); VLDL CHOLESTEROL 36 mg/dL
[2019-03-31 18:37] LABS: HB2 TOTAL 12.4 g/dL; HEMOGLOBIN A1C 0.72 g/dL; HEMOGLOBIN A1C % 7.5 % (4.6-6.2)
== END 2019-03-31 10:44 | disposition home or self-care (01) ==
LOC: LAB.S 10:43
PROVIDERS: ATTEND Internal Medicine
DX: E78.5 Hyperlipidemia, unspecified (principal); E11.40 Type 2 diabetes mellitus with diabetic neuropathy, unspecified; M86.172 Other acute osteomyelitis, left ankle and foot; Z12.5 Encounter for screening for malignant neoplasm of prostate
CPT/HCPCS: 36415; 80053; 80061; 83036; 83721; 84153; 85025

== ENCOUNTER 2019-04-05 11:46 | Outpatient (CLI) | payer MEDICAID ==
--- NOTE | 2019-04-06 13:34 | MRI Report ---
Reason: QUESTION OF OSTEOMYELITIS LEFT GREAT TOE Procedure Date: 04/05/2019 Accession Number: [id number] / [id number] Procedure: MRI - Toe(s) LT W/O CPT Code: 89200 FULL RESULT: EXAM: LEFT FOREFOOT MRI WITHOUT CONTRAST EXAM DATE: 04/05/2019 01:55 PM. CLINICAL HISTORY: Left first toe osteomyelitis. COMPARISON: TOE(S) LT 08/27/2017 11:42 AM. TECHNIQUE: Multiplanar, multisequence T1-weighted and fluid-sensitive sequences of the forefoot without contrast. Other: Intravenous contrast was not given due to the patient's renal insufficiency. FINDINGS: Abnormal marrow signal at the first distal phalanx and distal aspect of the first proximal phalanx. Marginal osteophytes at the base of the first distal phalanx and distal aspect of the first proximal phalanx. Moderate first IP joint osteoarthritis. Mild first MTP joint osteoarthritis. Mild to moderate first TMT joint osteoarthritis. Previous amputation of the second digit to the level of the second metatarsal head. There is questionable partial amputation or erosion of the distal tuft of the third distal phalanx. Hypointense signal on the most distal aspect of the remaining third distal phalanx. Previous transmetatarsal amputation of the fifth digit to the level of the mid fifth metatarsal. Joints: Third and fourth toe hammertoe deformities are present. No effusions. The [id number] complex is unremarkable. The visualized plantar plates are unremarkable. Ligaments: The visualized collateral ligaments are intact. Tendons: The flexor and extensor tendons are unremarkable. Musculature: Severe atrophy of the visualized muscles. Other: There is an approximately 2.2 x 1 x 0.6 cm, encapsulated, mostly T2 hyperintense and T1 isointense subcutaneous collection or mass plantar to the flexor hallucis longus tendon and first MTP joint. There is subcutaneous edema and swelling at the dorsal aspect of the foot and at the first and third toes. IMPRESSION: 1. Abnormal marrow signal within the first distal phalanx and distal aspect of the first proximal phalanx most concerning for osteomyelitis. 2. Osteoarthritis at the first IP, first MTP, and first TMT joints. 3. Postoperative changes as described above. 4. A 2.2 x 1 x 0.6 cm encapsulated subcutaneous collection or mass plantar to the flexor hallucis longus tendon and first MTP joint. Differential may include adventitious bursitis, a seroma, ganglion. 5. Subcutaneous edema swelling at the dorsal aspect of the foot and first and third toes which may represent cellulitis. 6. Severe atrophy of the visualized muscles from chronic denervation. RADIA
== END 2019-04-05 11:47 | disposition home or self-care (01) ==
LOC: DI 11:46
PROVIDERS: ATTEND Physician Assistant Medical
DX: M86.179 Other acute osteomyelitis, unspecified ankle and foot (principal); M19.072 Primary osteoarthritis, left ankle and foot; R60.0 Localized edema; M62.572 Muscle wasting and atrophy, not elsewhere classified, left ankle and foot

== ENCOUNTER 2019-06-10 11:11 | Outpatient (CLI) | payer MEDICAID ==
--- NOTE | 2019-06-12 05:33 | Ultrasound Report ---
Reason: CKD G3B/A1 Procedure Date: 06/10/2019 Accession Number: [id number] / [id number] Procedure: US - Retroperitoneal CPT Code: FULL RESULT: EXAM: RENAL ULTRASOUND EXAM DATE: 06/10/2019 12:24 PM CLINICAL HISTORY: Chronic kidney disease G3B/A1. COMPARISON: None. TECHNIQUE: Real-time scanning was performed with static images obtained. FINDINGS: Right Kidney: 11.0 x 6.2 x 6.0 cm. Normal echotexture with no stones, contour-deforming masses, or hydronephrosis. Left Kidney: 13.0 x 5.9 x 5.0 cm. No hydronephrosis or solid appearing mass. Incidental 12 mm cyst in the interpolar portion. Bladder: Bilateral jets seen. The prevoid bladder volume was 331.4 cc. The postvoid bladder volume was 4.0 cc. Other: None. IMPRESSION: No hydronephrosis as cause of renal insufficiency. RADIA
== END 2019-06-10 11:12 | disposition home or self-care (01) ==
LOC: DI 11:11
PROVIDERS: ATTEND Internal Medicine Nephrology
DX: N18.3 Chronic kidney disease, stage 3 (moderate) (principal)
CPT/HCPCS: 76770

== ENCOUNTER 2019-06-17 11:33 | Outpatient (CLI) | payer MEDICAID | END 2019-06-17 11:34 | disposition home or self-care (01) | LOC: RT 11:33 | PROVIDERS: ATTEND Acupuncturist | DX: G89.29 Other chronic pain (principal) | CPT/HCPCS: 93005 ==

== ENCOUNTER 2019-10-09 15:16 | Outpatient (CLI) | payer MEDICAID ==
[2019-10-09 17:56] LABS: BILIRUBIN,URINE NEGATIVE (NEGATIVE); GLUCOSE, URINE (UA) NEGATIVE (NEGATIVE); KETONES,URINE (UA) NEGATIVE (NEGATIVE); LEUKOCYTE ESTERASE, URINE NEGATIVE (NEGATIVE); NITRITE,URINE NEGATIVE (NEGATIVE); OCCULT BLOOD,URINE NEGATIVE (NEGATIVE); PH,URINE 5.5 PH (5.0-7.5); PROTEIN,URINE 100 mg/dL (NEGATIVE); UROBILINOGEN,URINE 0.2 (NORMAL) E.U./dL (NORMAL)
[2019-10-09 18:03] LABS: CLARITY,URINE CLEAR (CLEAR)
[2019-10-09 18:17] LABS: BACTERIA,URINE None Seen /HPF (None Seen); RBC,URINE 0-5 /HPF (0-5); SQUAMOUS EPITHELIAL CELL,UR NONE SEEN (<= Few)
[2019-10-09 18:18] LABS: CASTS, URINE 0-2 Hyaline Casts /LPF; CREATININE,URINE 83.7 mg/dL
[2019-10-09 18:37] LABS: ALBUMIN 4.1 g/dL (3.2-5.5); CALCIUM 9.3 mg/dL (8.5-10.3); CREATININE 2.1 mg/dL (0.6-1.2); MAGNESIUM 2.3 mg/dL (1.7-2.8); PHOSPHORUS 4.3 mg/dL (2.5-4.6); URIC ACID 5.1 mg/dL (2.6-7.2)
[2019-10-10 09:54] LABS: BASOPHILS % (AUTO) 0.4 %; EOSINOPHILS # (AUTO) 0.1 10^3/uL (0.0-0.7); EOSINOPHILS % (AUTO) 1.7 %; HGB - HEMOGLOBIN 10.4 g/dL (14.0-18.0); LYMPHOCYTES # (AUTO) 1.5 10^3/uL (1.5-3.5); LYMPHOCYTES % (AUTO) 21.6 %; MEAN CORPUSCULAR VOLUME 96.8 fL (80.0-94.0); MEAN PLATELET VOLUME 12.1 fL (7.4-11.4); MONOCYTES # (AUTO) 0.5 10^3/uL (0.0-1.0); MONOCYTES % (AUTO) 6.9 %; NEUTROPHILS # (AUTO) 4.9 10^3/uL (1.5-6.6); PLT - PLATELET COUNT 129 10^3/uL (130-450); RED BLOOD COUNT 3.47 10^6/uL (4.70-6.10); RED CELL DISTRIBUTION WIDTH 15.2 % (12.0-15.0); WHITE BLOOD COUNT 7.1 x10^3/uL (4.8-10.8)
== END 2019-10-09 23:59 | disposition home or self-care (01) ==
LOC: LAB.S 15:16
PROVIDERS: ATTEND Internal Medicine Nephrology
DX: N18.3 Chronic kidney disease, stage 3 (moderate) (principal)
CPT/HCPCS: 36415; 80069; 81001; 82043; 82306; 82570; 83735; 83970; 84550; 85025

== ENCOUNTER 2020-04-11 13:12 | Outpatient (CLI) | payer MEDICAID ==
[2020-04-11 15:17] LABS: BASOPHILS % (AUTO) 0.4 %; EOSINOPHILS # (AUTO) 0.1 10^3/uL (0.0-0.7); EOSINOPHILS % (AUTO) 0.9 %; HGB - HEMOGLOBIN 11.6 g/dL (14.0-18.0); LYMPHOCYTES # (AUTO) 1.2 10^3/uL (1.5-3.5); LYMPHOCYTES % (AUTO) 17.4 %; MEAN CORPUSCULAR HEMOGLOBIN 28.9 pg (27.0-31.0); MEAN CORPUSCULAR HGB CONC 32.6 g/dL (32.0-36.0); MEAN CORPUSCULAR VOLUME 88.8 fL (80.0-94.0); MEAN PLATELET VOLUME 11.7 fL (7.4-11.4); MONOCYTES # (AUTO) 0.3 10^3/uL (0.0-1.0); NEUTROPHILS # (AUTO) 5.2 10^3/uL (1.5-6.6); NEUTROPHILS % (AUTO) 75.7 %; PLT - PLATELET COUNT 138 10^3/uL (130-450); RED BLOOD COUNT 4.01 10^6/uL (4.70-6.10); WHITE BLOOD COUNT 6.9 x10^3/uL (4.8-10.8)
[2020-04-11 15:38] LABS: CALCIUM 10.5 mg/dL (8.5-10.3)
[2020-04-11 19:07] LABS: HEMOGLOBIN A1c% 10.8 % (4.27-6.07)
== END 2020-04-11 13:13 | disposition home or self-care (01) ==
LOC: LAB.S 13:12
PROVIDERS: ATTEND Family Medicine
DX: N18.3 Chronic kidney disease, stage 3 (moderate) (principal); E11.40 Type 2 diabetes mellitus with diabetic neuropathy, unspecified; D64.9 Anemia, unspecified
CPT/HCPCS: 36415; 80048; 83036; 85025

== ENCOUNTER 2021-02-21 13:17 | Outpatient (CLI) | payer MEDICAID ==
[2021-02-21 20:25] LABS: ALBUMIN 3.4 g/dL (3.2-5.5); BILIRUBIN,TOTAL 0.7 mg/dL (0.2-1.0); CALCIUM 8.5 mg/dL (8.5-10.3); CREATININE 2.9 mg/dL (0.6-1.2); POTASSIUM 5.7 mmol/L (3.5-5.0); TOTAL PROTEIN 6.8 g/dL (6.7-8.2)
[2021-02-21 20:41] LABS: ESTIMATED AVERAGE GLUCOSE 243 mg/dL (70-100); HEMOGLOBIN A1c% 10.1 % (4.27-6.07)
== END 2021-02-21 13:18 | disposition home or self-care (01) ==
LOC: LAB.S 13:17
PROVIDERS: ATTEND Internal Medicine
DX: E11.40 Type 2 diabetes mellitus with diabetic neuropathy, unspecified (principal)
CPT/HCPCS: 36415; 80053; 83036

== ENCOUNTER 2021-03-04 15:19 | Outpatient (CLI) | payer MEDICAID ==
[2021-03-04 20:43] LABS: BILIRUBIN,URINE NEGATIVE (NEGATIVE); GLUCOSE, URINE (UA) NEGATIVE (NEGATIVE); KETONES,URINE (UA) NEGATIVE (NEGATIVE); LEUKOCYTE ESTERASE, URINE NEGATIVE (NEGATIVE); NITRITE,URINE NEGATIVE (NEGATIVE); OCCULT BLOOD,URINE NEGATIVE (NEGATIVE); PH,URINE 5.5 PH (5.0-7.5); PROTEIN,URINE >=300 mg/dL (NEGATIVE); UROBILINOGEN,URINE 0.2 (NORMAL) E.U./dL (NORMAL)
[2021-03-04 21:07] LABS: BACTERIA,URINE None Seen /HPF (None Seen); CLARITY,URINE CLEAR (CLEAR); RBC,URINE 0-5 /HPF (0-5); SQUAMOUS EPITHELIAL CELL,UR RARE Squamous (<= Few); WBC,URINE 0-3 /HPF (0-3)
[2021-03-04 21:24] LABS: ESTIMATED AVERAGE GLUCOSE 232 mg/dL (70-100); HEMOGLOBIN A1c% 9.7 % (4.27-6.07)
[2021-03-04 21:33] LABS: ALBUMIN 3.7 g/dL (3.2-5.5); ALBUMIN/GLOBULIN RATIO 0.9 (1.0-2.2); BILIRUBIN,TOTAL 0.7 mg/dL (0.2-1.0); CALCIUM 9.4 mg/dL (8.5-10.3); CREATININE 3.4 mg/dL (0.6-1.2); TOTAL PROTEIN 7.6 g/dL (6.7-8.2)
[2021-03-04 21:44] LABS: POTASSIUM 7.5 mmol/L (3.5-5.0)
== END 2021-03-04 15:20 | disposition home or self-care (01) ==
LOC: LAB.S 15:19
PROVIDERS: ATTEND Internal Medicine
DX: E87.5 Hyperkalemia (principal); E11.40 Type 2 diabetes mellitus with diabetic neuropathy, unspecified; E11.22 Type 2 diabetes mellitus with diabetic chronic kidney disease; N18.30 Chronic kidney disease, stage 3 unspecified
CPT/HCPCS: 36415; 80053; 81001; 83036; 87086

== ENCOUNTER 2021-03-04 22:30 | Outpatient (CLI) | payer MEDICAID | END 2021-03-04 22:31 | disposition critical access hospital (66) | LOC: EMS 22:30 | DX: E87.5 Hyperkalemia (principal) | CPT/HCPCS: A0425; A0429; A0999 ==

== ENCOUNTER 2021-03-04 22:58 | Observation (INO) | payer MEDICAID ==
[2021-03-04] MEDS ORDERED: SODIUM CHLORIDE 0.9% 1,000 ML IV STA (23:01)
[2021-03-04 23:37] LABS: BASOPHILS # (AUTO) 0.1 10^3/uL (0.0-0.1); BASOPHILS % (AUTO) 0.9 %; EOSINOPHILS # (AUTO) 0.1 10^3/uL (0.0-0.7); EOSINOPHILS % (AUTO) 1.5 %; HCT - HEMATOCRIT 35.6 % (42.0-52.0); HGB - HEMOGLOBIN 11.5 g/dL (14.0-18.0); LYMPHOCYTES # (AUTO) 1.8 10^3/uL (1.5-3.5); LYMPHOCYTES % (AUTO) 27.5 %; MEAN CORPUSCULAR HEMOGLOBIN 30.6 pg (27.0-31.0); MEAN CORPUSCULAR HGB CONC 32.3 g/dL (32.0-36.0); MEAN CORPUSCULAR VOLUME 94.7 fL (80.0-94.0); MEAN PLATELET VOLUME 10.4 fL (7.4-11.4); MONOCYTES # (AUTO) 0.5 10^3/uL (0.0-1.0); MONOCYTES % (AUTO) 7.5 %; NEUTROPHILS # (AUTO) 4.2 10^3/uL (1.5-6.6); NEUTROPHILS % (AUTO) 62.3 %; PLT - PLATELET COUNT 155 10^3/uL (130-450); RED BLOOD COUNT 3.76 10^6/uL (4.70-6.10); RED CELL DISTRIBUTION WIDTH 14.4 % (12.0-15.0); WHITE BLOOD COUNT 6.7 x10^3/uL (4.8-10.8)
[2021-03-04 23:51] LABS: ALBUMIN 3.6 g/dL (3.2-5.5); ALBUMIN/GLOBULIN RATIO 0.9 (1.0-2.2); BILIRUBIN,TOTAL 0.7 mg/dL (0.2-1.0); CALCIUM 9.3 mg/dL (8.5-10.3); CREATININE 3.6 mg/dL (0.6-1.2); TOTAL PROTEIN 7.5 g/dL (6.7-8.2)
[2021-03-04] MEDS ORDERED: CALCIUM GLUCONATE 2,000 MG in SODIUM CHLORIDE 0.9% 100ML 100 ML IV STA (23:55)
[2021-03-04] MEDS ORDERED: SODIUM BICARBONATE ABBOJECT 50 MEQ/50 ML SYRINGE IVP STA (23:56)
[2021-03-04] MEDS ORDERED: ALBUTEROL NEB 2.5 MG/3 ML INH STA (23:56)
[2021-03-04] MEDS ORDERED: DEXTROSE 50% ABBOJECT 25 GM/50 ML SYRINGE IVP STA (23:57)
[2021-03-04] MEDS ORDERED: INSULIN REGULAR HUMAN 100 UNIT/1 ML 10 ML MDV IVP STA (23:57)
[2021-03-05] MEDS ORDERED: CALCIUM GLUCONATE 1000 MG/10 ML VIAL ONE (00:24)
[2021-03-05 01:14] LABS: CREATININE 3.7 mg/dL (0.6-1.2)
[2021-03-05 01:17] LABS: POTASSIUM 6.9 mmol/L (3.5-5.0)
[2021-03-05 02:00] LABS: CALCIUM 9.7 mg/dL (8.5-10.3); CREATININE 3.8 mg/dL (0.6-1.2)
[2021-03-05 02:02] LABS: POTASSIUM 6.8 mmol/L (3.5-5.0)
[2021-03-05] MEDS ORDERED: INSULIN REGULAR HUMAN 100 UNIT/1 ML 10 ML MDV IVP STA ×2 (02:33→05:25)
[2021-03-05] MEDS ORDERED: ALBUTEROL NEB 2.5 MG/3 ML INH STA (02:34)
[2021-03-05] MEDS ORDERED: SODIUM BICARBONATE ABBOJECT 50 MEQ/50 ML SYRINGE IVP STA (02:34)
[2021-03-05 03:55] LABS: CALCIUM 9.9 mg/dL (8.5-10.3); CREATININE 3.8 mg/dL (0.6-1.2)
[2021-03-05 03:56] LABS: POTASSIUM 6.6 mmol/L (3.5-5.0)
[2021-03-05] MEDS ORDERED: SODIUM CHLORIDE 0.9% 500 ML IV ONE (05:19)
--- NOTE | 2021-03-05 05:21 | ED Physician Documentation ---
History of Present Illness - Stated complaint Stated Complaint: HYPERKALEMIA - Chief complaint Chief Complaint: Wound - History obtained from History obtained from: Patient - Additonal information Additional information: 65yM with pmh dm2, htn, former drug user on methadone, R BKA, p/w hyperkemia on annual labwork ordered by his primary Dr. Witt. Patient states he still makes urine. unsure if he has any kidney issues. limited historian. denies any symptoms at present. Review of Systems Ten Systems: 10 systems reviewed and negative Constitutional: denies: Fever, Chills Cardiac: denies: Chest pain / pressure Respiratory: denies: Dyspnea GI: denies: Nausea PD PAST MEDICAL HISTORY - Past Medical History Past Medical History: Yes Cardiovascular: Hypertension, High cholesterol Respiratory: None Neuro: Peripheral neuropathy Endocrine/Autoimmune: Type 2 diabetes GI: GERD, Chronic diarrhea, Chronic constipation, Pancreatitis : Incontinence, Other HEENT: Chronic vision loss Psych: Depression, Anxiety, Bipolar disorder, Panic attacks, Post traumatic stress disorder Musculoskeletal: Other Derm: None - Past Surgical History Past Surgical History: Yes General: Other Ortho: Amputation - Present Medications Home Medications: Ambulatory Orders Medication Instructions Recorded Confirmed ARIPiprazole [Abilify] 15 mg PO QPM 03/02/13 12/22/19 Lisinopril 10 mg PO BID 03/02/13 12/22/19 Sertraline [Zoloft] 50 mg PO BID 03/02/13 12/22/19 Insulin Regular, Human [Humulin R] 10 unit SQ TIDWM 03/25/15 12/22/19 Methadone [Methadone Hcl] 15 mg PO QPM 03/25/15 12/22/19 lamoTRIgine [Lamictal] 150 mg PO BID 03/25/15 12/22/19 metFORMIN [Glucophage] 1,000 mg PO BIDWM 03/25/15 12/22/19 Pravastatin Sodium 40 mg PO QPM 03/26/15 12/22/19 Methadone [Methadone Hcl] 20 mg PO AC 04/27/16 12/22/19 Cyanocobalamin (Vitamin B-12) 500 mcg PO QPM 08/27/17 12/22/19 [Vitamin B-12 (500 mcg sublingual)] Gabapentin 800 mg PO TID 08/27/17 12/22/19 Multivitamin [Theragran] 1 tab PO DAILY 08/27/17 12/22/19 tiZANidine [Zanaflex] 8 mg PO QPM 08/27/17 12/22/19 Insulin Glargine [Lantus Solostar] 40 units SQ BID 12/09/17 12/22/19 Promethazine [Phenergan] 25 mg PO Q6H PRN #10 tab 04/23/18 12/22/19 Sulfamethox/Trimeth 800/160 1 tab PO BID 07/21/19 12/22/19 [Bactrim Ds] - Allergies Allergies/Adverse Reactions: Allergies Allergy/AdvReac Type Severity Reaction Status Date / Time atorvastatin calcium * Allergy Unknown Unknown Verified 02/25/19 13:28 [From Lipitor] - Social History Does the pt smoke?: Yes Smoking Status: Current every day smoker Does the pt drink ETOH?: No Does the pt have substance abuse?: No - Immunizations Immunizations are current?: No Immunizations: TDAP >10years/unknown - POLST Patient has POLST: No PD ED PE NORMAL - Vitals Vital signs reviewed: Yes - General General: Alert and oriented X 3, No acute distress - HEENT HEENT: Atraumatic, PERRL, EOMI - Neck Neck: Supple, no meningeal sign - Cardiac Cardiac: RRR - Respiratory Respiratory: No respiratory distress, Clear bilaterally - Abdomen Abdomen: Non tender, Non distended - Back Back: No CVA TTP - Derm Derm: Normal color - Extremities Extremities: No deformity, Other (R BKA. L toes amputated) - Neuro Neuro: Alert and oriented X 3, No motor deficit, No sensory deficit - Psych Psych: Normal mood, Normal affect Results - Vitals Vitals: Vital Signs - 24 hr 03/04/21 03/05/21 03/05/21 23:11 00:37 00:38 Temperature 37.1 C Heart Rate 66 69 64 Respiratory 18 16 18 Rate Blood Pressure 133/58 H 130/73 O2 Saturation 98 100 03/05/21 03/05/21 03/05/21 01:08 02:59 03:00 Temperature Heart Rate 68 68 69 Respiratory 19 20 17 Rate Blood Pressure 132/52 H 140/54 H O2 Saturation 97 96 Oxygen O2 Source Room air - EKG (time done) 2319 Rate: Rate (enter#) (69) Rhythm: NSR [place]: Normal Intervals: Normal OK QRS: Normal - Labs Labs: Laboratory Tests 03/04/21 03/04/21 03/05/21 23:35 23:35 00:55 WBC 6.7 RBC 3.76 L Hgb 11.5 L Hct 35.6 L MCV 94.7 H MCH 30.6 MCHC 32.3 RDW 14.4 Plt Count 155 MPV 10.4 Neut # (Auto) 4.2 Lymph # (Auto) 1.8 [place] # (Auto) 0.5 Eos # (Auto) 0.1 Baso # (Auto) 0.1 Absolute Nucleated RBC 0.00 Nucleated RBC % 0.0 Sodium 139 138 Potassium 7.0 H* 6.9 H* Chloride 101 101 Carbon Dioxide 27 27 Anion Gap 11.0 10.0 BUN 50 H 52 H Creatinine 3.6 H 3.7 H Estimated GFR (MDRD) 17 L 17 L Glucose 256 H 332 H Calcium 9.3 9.0 Total Bilirubin 0.7 AST 27 ALT 26 Alkaline Phosphatase 174 H Total Protein 7.5 Albumin 3.6 Globulin 3.9 Albumin/Globulin Ratio 0.9 L Lipase 26 03/05/21 03/05/21 01:35 03:30 WBC RBC Hgb Hct MCV MCH MCHC RDW Plt Count MPV Neut # (Auto) Lymph # (Auto) [place] # (Auto) Eos # (Auto) Baso # (Auto) Absolute Nucleated RBC Nucleated RBC % Sodium 139 146 H Potassium 6.8 H* 6.6 H* Chloride 103 108 Carbon Dioxide 26 28 Anion Gap 10.0 10.0 BUN 54 H 52 H Creatinine 3.8 H 3.8 H Estimated GFR (MDRD) 16 L 16 L Glucose 227 H 111 H Calcium 9.7 9.9 Total Bilirubin AST ALT Alkaline Phosphatase Total Protein Albumin Globulin Albumin/Globulin Ratio Lipase PD MEDICAL DECISION MAKING - ED course ED course: patient with persistent hyperkalemia despite multiple rounds of meds in ED. also with ALEXEY. will admit to observation under DR. Mulligan Departure - Departure Disposition: ED Place in Observation Clinical Impression: Hyperkalemia, ALEXEY (acute kidney injury) Condition: Stable
[2021-03-05] MEDS ORDERED: ACETAMINOPHEN 325 MG TABLET PO PRN (05:22)
[2021-03-05] MEDS ORDERED: SODIUM POLYSTYRENE SULFONATE 15 GM/60 ML BOTTLE PO STA (05:25)
[2021-03-05] MEDS ORDERED: DEXTROSE 50% ABBOJECT 25 GM/50 ML SYRINGE IVP STA (05:25)
--- NOTE | 2021-03-05 05:27 | HISTORY & PHYSICAL EXAMINATION ---
Chief Complaint - Chief Complaint Chief Complaint: Abnormal blood work History of Present Illness - Admitted From Admitted From:: Home - History Obtained From Records Reviewed: Yes History obtained from: Patient, ER Physician, EMR - History of Present Illness HPI Comment/Other: This is a 65-year-old male with a past medical history significant for type 2 diabetes mellitus, chronic kidney disease, history of substance abuse on methadone who presents today after having outpatient labs obtained on a routine basis which was concerning for potassium 7.5. He was asked to come to the emergency department for further evaluation of this. He reports doing well overall and has no complaints at this time. He states he was prescribed antibiotics a couple days ago for a potential left leg infection and she has a few sores on the leg. He is not sure what the antibiotic is. He is not sure if he is taking lisinopril or not. He believes he has been eating okay the past few days although he admits that his diet could improve as he has been eating a lot of processed foods. He reports being compliant with his home insulin regimen which includes Lantus in the evening as well as Humalog with meals. He states he is aware that he has had problems with his kidneys over the past period of time. He does not think he would want dialysis but he is not under percent on that. 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 He reports having adequate urine output. He reports no chest pain, dyspnea, fever, chills, abdominal pain. In the emergency department, it was noted his potassium had decreased to 7.0. He was given insulin, dextrose, sodium bicarbonate with slight improvement in his potassium down to 6.8. This was administered once again with only minimal improvement down to 6.6. Given his ongoing hyperkalemia, medicine was consulted for admission. History - Past Medical History Cardiovascular: reports: Hypertension, High cholesterol Respiratory: reports: None Neuro: reports: Peripheral neuropathy Endocrine/Autoimmune: reports: Type 2 diabetes GI: reports: GERD, Chronic diarrhea, Chronic constipation, Pancreatitis : reports: Incontinence, Other HEENT: reports: Chronic vision loss Psych: reports: Depression, Anxiety, Bipolar disorder, Panic attacks, Post traumatic stress disorder Derm: reports: None MRSA Hx?: No - Past Surgical History Ortho: reports: Amputation (Right BKA.) - Family & Social History Family History Comment/Other: He believes his mother had diabetes. He also reports that her bipolar disorder runs through his mother side of the family. He does not recall a history of renal disease. Living arrangement: At home Social History Notes: He smokes about a pack a day and has been doing so for 40 years. He has a history of alcohol use with heavy drinking up until about 6 or 7 years ago. He had a history of illicit drug use with heroin, amphetamines, cocaine but he quit over 10 years. - POLST Patient has POLST: No Meds/Allgy - Home Medications Home Medications: Ambulatory Orders Medication Instructions Recorded Confirmed ARIPiprazole [Abilify] 15 mg PO QPM 03/02/13 12/22/19 Lisinopril 10 mg PO BID 03/02/13 12/22/19 Sertraline [Zoloft] 50 mg PO BID 03/02/13 12/22/19 Insulin Regular, Human [Humulin R] 10 unit SQ TIDWM 03/25/15 12/22/19 Methadone [Methadone Hcl] 15 mg PO QPM 03/25/15 12/22/19 lamoTRIgine [Lamictal] 150 mg PO BID 03/25/15 12/22/19 metFORMIN [Glucophage] 1,000 mg PO BIDWM 03/25/15 12/22/19 Pravastatin Sodium 40 mg PO QPM 03/26/15 12/22/19 Methadone [Methadone Hcl] 20 mg PO AC 04/27/16 12/22/19 Cyanocobalamin (Vitamin B-12) 500 mcg PO QPM 08/27/17 12/22/19 [Vitamin B-12 (500 mcg sublingual)] Gabapentin 800 mg PO TID 08/27/17 12/22/19 Multivitamin [Theragran] 1 tab PO DAILY 08/27/17 12/22/19 tiZANidine [Zanaflex] 8 mg PO QPM 08/27/17 12/22/19 Insulin Glargine [Lantus Solostar] 40 units SQ BID 12/09/17 12/22/19 Promethazine [Phenergan] 25 mg PO Q6H PRN #10 tab 04/23/18 12/22/19 Sulfamethox/Trimeth 800/160 1 tab PO BID 07/21/19 12/22/19 [Bactrim Ds] - Allergies Allergies/Adverse Reactions: Allergies Allergy/AdvReac Type Severity Reaction Status Date / Time atorvastatin calcium * Allergy Unknown Unknown Verified 02/25/19 13:28 [From Lipitor] Review of Systems - Constitutional Constitutional: denies: Fever, Chills - Cardiovascular Cariovascular: denies: Chest pain, Exertional dyspnea, Decr. exercise tolerance - Respiratory Respiratory: denies: Cough, SOB at rest, SOB with exertion - Gastrointestinal Gastrointestinal: reports: Constipation. denies: Abdominal pain, Nausea, Vomiting - Genitourinary Genitourinary: denies: Dysuria, Frequency, Hematuria - Integumentary Integumentary: reports: Pigment changes - Neurological Neurological: denies: General weakness, Focal weakness - All Other Systems All Other Systems: reports: Reviewed and negative Prior Level of Functionality: He is independent with his ADLs. Exam - Vital Signs Reviewed Vital Signs: Yes Vital Signs: Vital Signs x48h Temp Pulse Resp BP Pulse Ox 03/05/21 03:00 69 17 140/54 H 96 03/05/21 02:59 68 20 03/05/21 01:08 68 19 132/52 H 97 03/05/21 00:38 64 18 130/73 100 03/05/21 00:37 69 16 03/04/21 23:11 37.1 C 66 18 133/58 H 98 - Physical Exam General Appearance: positive: No acute distress, Alert Eyes Bilateral: positive: Normal inspection ENT: positive: ENT inspection nml Neck: positive: Nml inspection Respiratory: positive: No respiratory distress Cardiovascular: positive: Regular rate & rhythm, No murmur. negative: Tachycardia Abdomen: positive: Non-tender, No distention. negative: Tenderness Skin: positive: Warm, Dry, Other (Minimal erythema in the left lower extremity. There are a few small wounds ranging about 1 x 1 cm to 2 x 2 without purulent drainage.) Extremities: positive: Pedal edema (+1 pitting edema in left lower extremity.), Other (Right BKA with prosthesis in place.) Neurologic/Psychiatric: negative: Disoriented to person, Disoriented to place Conclusion/Plan - Problem List (1) Hyperkalemia Conclusion/Plan: He presented with a potassium of 7.0 for which she receives calcium gluconate as well as insulin, dextrose, sodium bicarbonate. Despite multiple doses of insulin and sodium bicarbonate, his potassium has only decreased to 6.6. This is likely related to a component of acute kidney injury the patient has chronic kidney disease as well as the use of Bactrim and lisinoprill. We will discontinue the lisinopril and Bactrim. We will hydrate him with IV fluids. We will give him another dose of insulin and dextrose and give him a dose of Kayexalate. We will recheck labs in 4 hours. (2) Acute kidney injury superimposed on CKD Conclusion/Plan: He does appear to have acute kidney injury on chronic kidney disease. His baseline creatinine appears to be from 2.5-2.9. Today it is 3.8. Is likely has CKD due to his diabetes. We will hydrate him with IV lactated Ringer's. Hold his home lisinopril and bactrim. Check urinalysis and ultrasound for obstruction. We will monitor his renal function closely as if there is no improvement and he continues have hyperkalemia then he may need hemodialysis. Nonetheless, he will need close follow-up with nephrology on outpatient basis given the decline in his renal function over the past 2 years. (3) Diabetes mellitus with hyperglycemia Conclusion/Plan: He was hyperglycemic initially but this improved down to the 100s. We will resume his home Lantus this morning. We will give another dose of 10 units of IV insulin given the hyperglycemia. Carb controlled diet. His A1c was nearly 10% and we will ask carrot tier to see him while he is hospitalized. 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 - Lab Results Lab results reviewed: Yes Fish Bones: 03/04/21 23:35 03/05/21 03:30 - Diagnostic Imaging Results Diagnostic Imaging Results: positive: Prelim report reviewed Core Measures - Anticipated LOS I expect patient to be DC'd or transferred within 96 hours.: Yes - Issues Hospital Issues and Management Plan: 65-year-old male with chronic kidney disease presents with abnormal labs on outpatient basis found to have potassium 7.0. He also appears to have acute kidney injury. We will place in observation for further management of his hyperkalemia. - DVT/VTE - Prophylaxis VTE/DVT Device ordered at admit?: Yes VTE/DVT Prophylaxis med ordered at admit?: Yes
[2021-03-05] MEDS ORDERED: LACTATED RINGERS 1,000 ML IV SCH (06:00)
[2021-03-05] MEDS ORDERED: DEXTROSE 50% ABBOJECT 25 GM/50 ML SYRINGE IVP ONE ×2 (07:49→10:26)
[2021-03-05] MEDS ORDERED: DEXTROSE 5%-0.45% NACL 1,000 ML IV SCH (08:00)
--- NOTE | 2021-03-05 08:23 | XRAY Report ---
PROCEDURE: Chest 1 View X-Ray INDICATIONS: Chest Pain TECHNIQUE: One view of the chest was acquired. COMPARISON: Two-view chest 09/24/2015 FINDINGS: Surgical changes and devices: None. Lungs and pleura: No pleural effusions or pneumothorax. Lungs are clear. Mediastinum: Mediastinal contours appear normal. Heart size is normal. Bones and chest wall: No suspicious bony lesions. Overlying soft tissues appear unremarkable. IMPRESSION: Normal for age, source of current symptoms is not seen. Reviewed by: Charles Kate MD on 03/05/2021 8:22 AM PDT Approved by: Charles Kate MD on 03/05/2021 8:22 AM PDT Station ID: [id number]
[2021-03-05] MEDS: INSULIN ASPART 300 UNIT/3 ML PEN SUBQ SCH ×7 (08:25→21:16)
[2021-03-05] MEDS: HEPARIN 5,000 UNIT/ML VIAL SUBQ SCH ×2 (08:39→21:15)
[2021-03-05] MEDS: INSULIN GLARGINE 300 UNIT/3 ML PEN SUBQ SCH (08:41)
[2021-03-05] MEDS: SODIUM CHLORIDE FLUSH 0.9% 10 ML SYRINGE IVP PRN ×2 (08:50→11:32)
[2021-03-05] MEDS: SODIUM CHLORIDE FLUSH 0.9% 10 ML SYRINGE IVP SCH ×2 (08:50→17:56)
[2021-03-05 09:48] LABS: CALCIUM 9.6 mg/dL (8.5-10.3); CREATININE 3.5 mg/dL (0.6-1.2)
[2021-03-05 09:50] LABS: POTASSIUM 6.3 mmol/L (3.5-5.0)
[2021-03-05] MEDS ORDERED: INSULIN REGULAR HUMAN 300 UNIT/3 ML VIAL IVP ONE ×2 (10:25→20:39)
[2021-03-05] MEDS ORDERED: SODIUM POLYSTYRENE SULFONATE 15 GM/60 ML BOTTLE PO ONE ×2 (10:27→20:37)
[2021-03-05 10:34] LABS: MUDS CUTOFF CONCENTRATIONS CUTOFF CONC BELOW:
[2021-03-05 10:37] LABS: BILIRUBIN,URINE NEGATIVE (NEGATIVE); GLUCOSE, URINE (UA) 500 mg/dL (NEGATIVE); KETONES,URINE (UA) NEGATIVE (NEGATIVE); LEUKOCYTE ESTERASE, URINE NEGATIVE (NEGATIVE); NITRITE,URINE NEGATIVE (NEGATIVE); OCCULT BLOOD,URINE NEGATIVE (NEGATIVE); PROTEIN,URINE 100 mg/dL (NEGATIVE); UROBILINOGEN,URINE 0.2 (NORMAL) E.U./dL (NORMAL)
[2021-03-05 10:44] LABS: CLARITY,URINE CLEAR (CLEAR)
[2021-03-05 10:52] LABS: AMPHETAMINE SCREEN,URINE NEGATIVE (NEGATIVE); BACTERIA,URINE Rare /HPF (None Seen); BARBITURATE SCREEN,UR NEGATIVE (NEGATIVE); BENZODIAZEPINES SCREEN, URINE NEGATIVE (NEGATIVE); COCAINE SCREEN URINE NEGATIVE (NEGATIVE); METHADONE SCREEN, URINE POSITIVE (NEGATIVE); METHAMPHETAMINES SCREEN, URINE NEGATIVE (NEGATIVE); OPIATE SCREEN, URINE NEGATIVE (NEGATIVE); OXYCODONE SCREEN, URINE NEGATIVE (NEGATIVE); PROPOXYPHENE SCREEN, URINE NEGATIVE (NEGATIVE); RBC,URINE 0-5 /HPF (0-5); SQUAMOUS EPITHELIAL CELL,UR RARE Squamous (<= Few); THC CANNABINOID SCREEN, URINE POSITIVE (NEGATIVE); TRICYCLIC ANTIDEPRESSANT,URINE NEGATIVE (NEGATIVE); WBC,URINE 0-3 /HPF (0-3)
[2021-03-05] MEDS: LACTATED RINGERS 1,000 ML IV SCH ×3 (11:25→23:59)
[2021-03-05] MEDS ORDERED: hydrALAZINE INJ 20 MG/ML VIAL IVP PRN (12:02)
[2021-03-05] MEDS ORDERED: METHADONE 5 MG TABLET PO SCH ×3 (13:00→21:00)
--- NOTE | 2021-03-05 13:19 | PHARMACY PROGRESS NOTE ---
- Best Possible Medication History Admit Date and Time: 03/05/21 0549 Processed by: Pharmacy Medication History completed: Yes Patient Interview: Completed Secondary Source(s): Written medication list, Physician records, Pharmacy records, Insurance records (PATIENT'S PARTNER ABLE TO CONFIRM HOME MEDICATIONS ) As the person ultimately responsible for medication therapy, providers are able to order a medication from an existing home medication list in [facility] via the "Reconcile Routine" prior to Confirmation of that medication by residential support specialist. Such practice is discouraged except when the physician, in their clinical judgment, deems that a medical need exists for a medication without regard to previous use.
--- NOTE | 2021-03-05 15:32 | Ultrasound Report ---
PROCEDURE: Retroperitoneal INDICATIONS: Acute kidney injury. TECHNIQUE: Real-time scanning was performed of the kidneys and bladder, with image documentation. COMPARISON: Ultrasound 06/10/2019. FINDINGS: Kidneys: Kidneys are normal in size. Right kidney measures 11.1 cm long; left kidney measures 11.8 cm long. Right renal cortical thickness is 2.1 cm; left renal cortical thickness is 1 cm. Renal cor tical echotexture is normal. No hydronephrosis or nephrolithiasis. No suspicious solid mass lesions . A previously seen left renal cyst is not redemonstrated on the current exam. Bladder: Pre-void bladder volume is 93 mL. Post-void residual is 27 mL. Pre-void images demonstrat e no intraluminal masses or stones. There is mild circumferential bladder wall thickening on prevoid images, which may be due to incomplete distention. On pre-void images, bilateral ureteral jets are n oted with color Doppler interrogation. (Of note, ureteral jets may not be detectable in up to 25% of cases due to insufficient differences in specific gravity between ureteral and bladder urine). Miscellaneous: No free pelvic fluid. Prostate measures 3.8 x 3.1 x 4.1 cm (25.7 mL). IMPRESSION: 1. No hydronephrosis or nephrolithiasis. 2. Post void residual bladder volume is 27 mL. Reviewed by: Yuriy Rodríguez MD on 03/05/2021 2:30 PM [email or web address] Approved by: Yuriy Rodríguez MD on 03/05/2021 2:30 PM [facility] Station ID: [id number]
[2021-03-05 20:17] LABS: CALCIUM 9.2 mg/dL (8.5-10.3); CREATININE 3.2 mg/dL (0.6-1.2)
[2021-03-05 20:19] LABS: POTASSIUM 6.7 mmol/L (3.5-5.0)
[2021-03-05] MEDS ORDERED: tiZANidine 4 MG TABLET PO SCH (21:00)
[2021-03-05] MEDS ORDERED: ARIPiprazole 5 MG TABLET PO SCH (21:00)
[2021-03-05] MEDS: lamoTRIgine 100 MG TABLET PO SCH (21:05)
[2021-03-05] MEDS: SERTRALINE 25 MG TABLET PO SCH (21:13)
[2021-03-05] MEDS: GABAPENTIN 400 MG CAPSULE PO SCH (21:13)
[2021-03-05 23:15] LABS: CREATININE 3.1 mg/dL (0.6-1.2)
[2021-03-05 23:16] LABS: POTASSIUM 6.2 mmol/L (3.5-5.0)
[2021-03-06] MEDS: SODIUM CHLORIDE FLUSH 0.9% 10 ML SYRINGE IVP SCH ×2 (00:01→08:17)
[2021-03-06 05:22] LABS: BASOPHILS # (AUTO) 0.1 10^3/uL (0.0-0.1); BASOPHILS % (AUTO) 0.8 %; EOSINOPHILS # (AUTO) 0.1 10^3/uL (0.0-0.7); HCT - HEMATOCRIT 37.7 % (42.0-52.0); HGB - HEMOGLOBIN 11.7 g/dL (14.0-18.0); LYMPHOCYTES # (AUTO) 2.3 10^3/uL (1.5-3.5); LYMPHOCYTES % (AUTO) 32.2 %; MEAN CORPUSCULAR HEMOGLOBIN 29.5 pg (27.0-31.0); MONOCYTES # (AUTO) 0.6 10^3/uL (0.0-1.0); MONOCYTES % (AUTO) 7.9 %; NEUTROPHILS % (AUTO) 56.7 %; PLT - PLATELET COUNT 167 10^3/uL (130-450); RED BLOOD COUNT 3.97 10^6/uL (4.70-6.10); RED CELL DISTRIBUTION WIDTH 14.3 % (12.0-15.0); WHITE BLOOD COUNT 7.1 x10^3/uL (4.8-10.8)
[2021-03-06 05:32] LABS: CALCIUM 9.5 mg/dL (8.5-10.3); CREATININE 2.9 mg/dL (0.6-1.2)
[2021-03-06] MEDS: GABAPENTIN 400 MG CAPSULE PO SCH ×2 (06:50→13:49)
[2021-03-06] MEDS ORDERED: SODIUM POLYSTYRENE SULFONATE 15 GM/60 ML BOTTLE PO ONE (07:13)
[2021-03-06] MEDS ORDERED: INSULIN REGULAR HUMAN 300 UNIT/3 ML VIAL IVP ONE (07:13)
[2021-03-06] MEDS ORDERED: DEXTROSE 25% ABBOJECT 2.5 GM/10 ML SYRINGE IVP ONE (07:13)
[2021-03-06] MEDS: LACTATED RINGERS 1,000 ML IV SCH (08:15)
[2021-03-06] MEDS: lamoTRIgine 100 MG TABLET PO SCH (08:17)
[2021-03-06] MEDS: SERTRALINE 25 MG TABLET PO SCH (08:18)
[2021-03-06] MEDS: INSULIN ASPART 300 UNIT/3 ML PEN SUBQ SCH ×2 (08:26→12:12)
[2021-03-06] MEDS: HEPARIN 5,000 UNIT/ML VIAL SUBQ SCH (08:27)
[2021-03-06] MEDS: INSULIN GLARGINE 300 UNIT/3 ML PEN SUBQ SCH (08:27)
[2021-03-06] MEDS ORDERED: METHADONE 5 MG TABLET PO SCH (09:00)
[2021-03-06] MEDS ORDERED: ALBUTEROL NEB 2.5 MG/3 ML INH SCH (09:00)
[2021-03-06 11:28] LABS: CALCIUM 9.2 mg/dL (8.5-10.3); CREATININE 2.9 mg/dL (0.6-1.2); POTASSIUM 5.1 mmol/L (3.5-5.0)
[2021-03-06] MEDS ORDERED: INSULIN ASPART 300 UNIT/3 ML PEN SUBQ ONE (11:39)
[2021-03-06] MEDS ORDERED: INSULIN ASPART 300 UNIT/3 ML PEN SUBQ SCH (12:00)
[2021-03-06 14:19] VITALS: BP 173/75
--- NOTE | 2021-03-06 14:26 | Discharge Plan ---
Discharge Plan Problem Reviewed?: Yes Disposition: Home, Self Care Condition: Stable Diet: Diabetic Activity Restrictions: Activity as Tolerated Shower Restrictions: No (fall precaution) Instruction Topics: Dehydration, Injury Acute Kidney Dc, Hyperkalemia Dc Health Concerns: dehydration, kidney injury, hyperkalemia Plan of Treatment: strongly advise you keep hydration at home. I called tar and ammonia pump operator Dr. Hinojosa, manager social help you make appointment for you to see the tar and ammonia pump operator Dr. Hinojosa. we also make appointment for you to see your PCP at 03/17/21, and you do blood work at 03/10/21 to monitor your kidney function and serum potassium level. Please followup with all these appointments. Your Metformin is on hold for protection of your kidney function. You may continue follow-up your PCP to manage your diabetic. Care Goals: Stabilization and improvement of your medical conditions Assessment: Discussed the care plan with you, answered your question, you understood Additional Instructions or Follow Up instructions: You may follow-up with your PCP on the scheduled time, follow-up with tar and ammonia pump operator as appointment. Should your symptoms return or worse, you may present to ER or call 911 for help. No Smoking: If you smoke, Please STOP! Call for help. Follow-up with: Gordo Witt MD [Primary Care Provider] -
--- NOTE | 2021-03-06 15:28 | DISCHARGE SUMMARY ---
Discharge Summary Admit Date: 03/05/21 Discharge Date: 03/06/21 Discharging Provider: Pedro Dickinson Primary Care Provider: Gordo Arriaga Condition at Discharge: Stable Discharge Disposition: 01 Home, Self Care Discharge Facility Name: home - DIAGNOSES Discharge Diagnoses with Status of Each Condition: 1) Hyperkalemia resolved. potassium is 5.[address] Hinojosa wine consultant with health and social care teacher help to make appointment for patient to see . Social work also help patient make appointment on March 17 to see his PCP Dr. Witt. I made the blood test for patient on March 11 to monitor pt's potassium level. pt is prescribed kayexalate (2) Acute kidney injury superimposed on CKD creatinine return to 2.9 as pt's baseline. Advised strongly to patient keep hydration at home and follow-up wine consultant appointment, and PCP management, and blood test to monitor his kidney function. (3) Diabetes mellitus with hyperglycemia pt was given D50 with regular insulin to decrease potassium, so his glucose level has elevated. resume pt's home insulin schedule, Follow-up with PCP continue management (4) Chronic pain stable controlled. resume home methadone, Follow-up with PCP for pain management - [facility] History of Present Illness: refer from Dr. Mulligan's HPI on 03/05/21 This is a 65-year-old male with a past medical history significant for type 2 diabetes mellitus, chronic kidney disease, history of substance abuse on methadone who presents today after having outpatient labs obtained on a routine basis which was concerning for potassium 7.5. He was asked to come to the emergency department for further evaluation of this. He reports doing well overall and has no complaints at this time. He states he was prescribed antibiotics a couple days ago for a potential left leg infection and she has a few sores on the leg. He is not sure what the antibiotic is. He is not sure if he is taking lisinopril or not. He believes he has been eating okay the past few days although he admits that his diet could improve as he has been eating a lot of processed foods. He reports being compliant with his home insulin regimen which includes Lantus in the evening as well as Humalog with meals. He states he is aware that he has had problems with his kidneys over the past period of time. He does not think he would want dialysis but he is not under percent on that. He has never seen a wine consultant. He reports having adequate urine output. He reports no chest pain, dyspnea, fever, chills, abdominal pain. In the emergency department, it was noted his potassium had decreased to 7.0. He was given insulin, dextrose, sodium bicarbonate with slight improvement in his potassium down to 6.8. This was administered once again with only minimal improvement down to 6.6. Given his ongoing hyperkalemia, medicine was consulted for admission. - HOSPITAL COURSE Hospital Course: Patient was admitted for abnormal lab test result. pt was found to have potassium 7.5 and creatinine 3.8 at the admission. Patient initiated treated with regular insulin, D50, Kayexalate, And intravenous IV fluids. Patient's potassium gradually improve and reduce, creatinine also gradually reduce and improve. pt also was treated with INH of albuterol. After treatment, patient p otassium is down 5.1, creatinine down to 2.9 at his baseline.Call wine consultant Dr. Hinojosa to make appointment for patient to see wine consultant. Early see his PCP to monitor and blood test also monitor patient's potassium and creatinine - ALLERGIES Allergies/Adverse Reactions: Allergies Allergy/AdvReac Type Severity Reaction Status Date / Time atorvastatin calcium * Allergy Unknown Unknown Verified 02/25/19 13:28 [From Lipitor] - MEDICATIONS Home Medications: Ambulatory Orders Medication Instructions Recorded Confirmed ARIPiprazole [Abilify] 15 mg PO QPM 03/02/13 03/05/21 Lisinopril 5 mg PO DAILY 03/02/13 03/05/21 Sertraline [Zoloft] 50 mg PO BID 03/02/13 03/05/21 Insulin Regular, Human [Humulin R] 10 unit SQ TIDWM 03/25/15 03/05/21 Methadone [Methadone Hcl] 15 mg PO QPM 03/25/15 03/05/21 lamoTRIgine [Lamictal] 150 mg PO BID 03/25/15 03/05/21 Pravastatin Sodium 40 mg PO QPM 03/26/15 03/05/21 Methadone [Methadone Hcl] 20 mg PO QDAC 04/27/16 03/05/21 Cyanocobalamin (Vitamin B-12) 500 mcg PO QPM 08/27/17 03/05/21 [Vitamin B-12 (500 mcg sublingual)] Gabapentin 800 mg PO TID 08/27/17 03/05/21 Multivitamin [Theragran] 1 tab PO DAILY 08/27/17 03/05/21 tiZANidine [Zanaflex] 8 mg PO QPM 08/27/17 03/05/21 Insulin Glargine [Lantus Solostar] 40 units SQ BID 12/09/17 03/05/21 Sod Polystyrene Sulf. [Kayexalate] 15 gm PO DAILY 5 Days #5 bottle 03/06/21 amLODIPine [Norvasc] 5 mg PO DAILY #30 tablet 03/06/21 - PHYSICAL EXAM AT DISCHARGE General Appearance: positive: No acute distress, Alert. negative: Lethargic Eyes Bilateral: positive: Normal inspection, PERRL, No lid inflammation ENT: positive: ENT inspection nml, No signs of dehydration. negative: Purulent nasal drainage Neck: positive: Nml inspection, Trachea midline. negative: Thyromegaly, Tracheal deviation Respiratory: positive: Chest non-tender, No respiratory distress. negative: Wheezes Cardiovascular: positive: Regular rate & rhythm, No murmur. negative: Tachycardia, Bradycardia, Systolic murmur, Diastolic murmur Peripheral Pulses: positive: 2+ Abdomen: positive: Non-tender, Nml bowel sounds, No distention. negative: Tenderness Back: positive: Nml inspection Skin: positive: Color nml, Warm, Dry. negative: Cyanosis Extremities: positive: Non-tender, Full ROM, Other (Patient had right BKA). negative: Calf tenderness Neurologic/Psychiatric: positive: Oriented x3, Motor nml, Sensation nml, Mood/affect nml. negative: Weakness, Sensory loss, Facial droop, Slurred/abnml speech, Depressed mood/affect - LABS Result Diagrams: 03/06/21 04:55 03/06/21 11:12 - FOLLOW UP Follow Up: strongly advise you keep hydration at home. I called wine consultant Dr. Hinojosa, health and social care teacher help you make appointment for you to see the wine consultant Dr. Hinojosa. we also make appointment for you to see your PCP at 03/17/21, and you do blood work at 03/10/21 to monitor your kidney function and serum potassium level. Please followup with all these appointments. Your Metformin is on hold for protection of your kidney function. You may continue follow-up your PCP to manage your diabetic. You may follow-up with your PCP on the scheduled time, follow-up with wine consultant as appointment. Should your symptoms return or worse, you may present to ER or call 911 for help. - TIME SPENT Time Spent in Discharge (Minutes): 30
[2021-03-06] MEDS ORDERED: amLODIPine 5 MG TABLET PO SCH (15:42)
[2021-03-06 20:26] LABS: ESTIMATED AVERAGE GLUCOSE 226 mg/dL (70-100); HEMOGLOBIN A1c% 9.5 % (4.27-6.07)
== END 2021-03-06 16:22 | disposition home or self-care (01) ==
LOC: EDUNIT# → ED 22:58 → MS3 03-05 05:49
PROVIDERS: ADMIT Internal Medicine; ATTEND Nurse Practitioner Gerontology
DX: E87.5 Hyperkalemia (principal); E11.40 Type 2 diabetes mellitus with diabetic neuropathy, unspecified; E11.22 Type 2 diabetes mellitus with diabetic chronic kidney disease; N18.30 Chronic kidney disease, stage 3 unspecified; N17.9 Acute kidney failure, unspecified; I12.9 Hypertensive chronic kidney disease with stage 1 through stage 4 chronic kidney disease, or unspecified chronic kidney disease; E11.65 Type 2 diabetes mellitus with hyperglycemia; N18.9 Chronic kidney disease, unspecified; F17.210 Nicotine dependence, cigarettes, uncomplicated; G89.29 Other chronic pain; F14.11 Cocaine abuse, in remission; F15.11 Other stimulant abuse, in remission; F11.11 Opioid abuse, in remission; E78.00 Pure hypercholesterolemia, unspecified; K52.9 Noninfective gastroenteritis and colitis, unspecified; K59.09 Other constipation; F31.9 Bipolar disorder, unspecified; F41.9 Anxiety disorder, unspecified; F41.0 Panic disorder [episodic paroxysmal anxiety]; F43.10 Post-traumatic stress disorder, unspecified; R32 Unspecified urinary incontinence; H54.7 Unspecified visual loss; Z87.19 Personal history of other diseases of the digestive system; Z79.4 Long term (current) use of insulin; Z89.511 Acquired absence of right leg below knee; Z79.899 Other long term (current) drug therapy
CPT/HCPCS: 36415; 71045; 76770; 80048; 80053; 80175; 80306; 81001; 83036; 83690; 85025; 93005; 94640; 96365; 96372; 96375; 96376; 99283; 99285; A9270; G0378; J1815; J7120; 87086

== ENCOUNTER 2021-04-08 13:17 | Outpatient (CLI) | payer MEDICAID ==
[2021-04-08 20:08] LABS: ALBUMIN 3.5 g/dL (3.2-5.5); BILIRUBIN,TOTAL 0.4 mg/dL (0.2-1.0); CALCIUM 8.9 mg/dL (8.5-10.3); CREATININE 2.4 mg/dL (0.6-1.2); POTASSIUM 4.3 mmol/L (3.5-5.0); TOTAL PROTEIN 7.1 g/dL (6.7-8.2)
== END 2021-04-08 13:18 | disposition home or self-care (01) ==
LOC: LAB.S 13:17
PROVIDERS: ATTEND Internal Medicine
DX: E87.5 Hyperkalemia (principal); N18.30 Chronic kidney disease, stage 3 unspecified
CPT/HCPCS: 36415; 80053

== ENCOUNTER 2021-05-21 17:22 | Outpatient (CLI) | payer MEDICAID ==
[2021-05-21 20:30] LABS: ALBUMIN 3.5 g/dL (3.2-5.5); BILIRUBIN,TOTAL 0.5 mg/dL (0.2-1.0); CREATININE 2.7 mg/dL (0.6-1.2); POTASSIUM 5.8 mmol/L (3.5-5.0)
== END 2021-05-21 17:23 | disposition home or self-care (01) ==
LOC: LAB.S 17:22
PROVIDERS: ATTEND Internal Medicine
DX: N18.30 Chronic kidney disease, stage 3 unspecified (principal)
CPT/HCPCS: 36415; 80053

== ENCOUNTER 2021-07-29 14:46 | Outpatient (CLI) | payer MEDICAID ==
[2021-07-29 19:58] LABS: HCT - HEMATOCRIT 30.7 % (42.0-52.0); MEAN CORPUSCULAR HEMOGLOBIN 30.8 pg (27.0-31.0); MEAN CORPUSCULAR HGB CONC 32.6 g/dL (32.0-36.0); MEAN CORPUSCULAR VOLUME 94.5 fL (80.0-94.0); MEAN PLATELET VOLUME 11.7 fL (7.4-11.4); RED BLOOD COUNT 3.25 10^6/uL (4.70-6.10); RED CELL DISTRIBUTION WIDTH 15.2 % (12.0-15.0); WHITE BLOOD COUNT 5.8 x10^3/uL (4.8-10.8)
[2021-07-29 20:34] LABS: CALCIUM 9.5 mg/dL (8.5-10.3); CREATININE 3.1 mg/dL (0.6-1.2); PHOSPHORUS 4.9 mg/dL (2.5-4.6); POTASSIUM 4.8 mmol/L (3.5-5.0)
[2021-07-29 20:52] LABS: PROTEIN/CREATININE RATIO,URINE 6.8 (<=0.2)
== END 2021-07-29 14:47 | disposition home or self-care (01) ==
LOC: LAB.S 14:46
PROVIDERS: ATTEND Internal Medicine Nephrology
DX: N05.9 Unspecified nephritic syndrome with unspecified morphologic changes (principal); D70.9 Neutropenia, unspecified; D63.1 Anemia in chronic kidney disease; E83.30 Disorder of phosphorus metabolism, unspecified; N25.81 Secondary hyperparathyroidism of renal origin; D47.2 Monoclonal gammopathy; R80.9 Proteinuria, unspecified
CPT/HCPCS: 36415; 80048; 81599; 82570; 83970; 84100; 84156; 84166; 85027; 86335

== ENCOUNTER 2021-09-22 11:13 | Outpatient (CLI) | payer MEDICAID ==
[2021-09-22 15:39] LABS: BUN - BLOOD UREA NITROGEN 68 mg/dL (6-20); CALCIUM 9.2 mg/dL (8.5-10.3); CARBON DIOXIDE - CO2 23 mmol/L (21-32); CHLORIDE 110 mmol/L (101-111); CHOL/HDL RATIO 7.2 (<5.0); CHOLESTEROL 201 mg/dL; CREATININE 4.3 mg/dL (0.6-1.2); GFR - MDRD 14 (>89); HDL CHOLESTEROL 28 mg/dL; POTASSIUM 5.2 mmol/L (3.5-5.0); SODIUM 142 mmol/L (135-145); TRIGLYCERIDES 603 mg/dL
[2021-09-22 15:59] LABS: GLUCOSE 60 mg/dL (70-100)
[2021-09-22 16:00] LABS: LDL CHOLESTEROL,DIRECT 65 mg/dL; LDLD/HDL RATIO 2.3 (<3.6)
[2021-09-22 20:25] LABS: ESTIMATED AVERAGE GLUCOSE 166 mg/dL (70-100); HEMOGLOBIN A1c% 7.4 % (4.27-6.07)
== END 2021-09-22 11:14 | disposition home or self-care (01) ==
LOC: LAB.S 11:13
PROVIDERS: ATTEND Nurse Practitioner
DX: E11.65 Type 2 diabetes mellitus with hyperglycemia (principal)
CPT/HCPCS: 36415; 80048; 80061; 83036; 83721

== ENCOUNTER 2021-12-03 15:44 | Outpatient (CLI) | payer MEDICAID ==
[2021-12-03 20:13] LABS: HCT - HEMATOCRIT 35.2 % (42.0-52.0); HGB - HEMOGLOBIN 11.6 g/dL (14.0-18.0); MEAN PLATELET VOLUME 11.2 fL (7.4-11.4); RED BLOOD COUNT 3.87 10^6/uL (4.70-6.10); RED CELL DISTRIBUTION WIDTH 15.1 % (12.0-15.0); WHITE BLOOD COUNT 7.5 x10^3/uL (4.8-10.8)
[2021-12-03 20:32] LABS: ALBUMIN 3.9 g/dL (3.2-5.5); CALCIUM 9.6 mg/dL (8.5-10.3); CREATININE 3.7 mg/dL (0.6-1.2); POTASSIUM 4.4 mmol/L (3.5-5.0)
[2021-12-03 21:10] LABS: FERRITIN 84.6 ng/mL (23.9-336.2)
== END 2021-12-03 15:45 | disposition home or self-care (01) ==
LOC: LAB.S 15:44
PROVIDERS: ATTEND Internal Medicine Nephrology
DX: R80.9 Proteinuria, unspecified (principal); N05.9 Unspecified nephritic syndrome with unspecified morphologic changes; D70.9 Neutropenia, unspecified; D63.1 Anemia in chronic kidney disease; D50.0 Iron deficiency anemia secondary to blood loss (chronic); D64.9 Anemia, unspecified; E11.9 Type 2 diabetes mellitus without complications
CPT/HCPCS: 36415; 80048; 81599; 82040; 82607; 82728; 82746; 83036; 83540; 84466; 85027

== ENCOUNTER 2022-03-03 15:38 | Outpatient (CLI) | payer MEDICAID ==
[2022-03-03 21:03] LABS: ESTIMATED AVERAGE GLUCOSE 143 mg/dL (70-100); HEMOGLOBIN A1c% 6.6 % (4.27-6.07)
== END 2022-03-03 15:39 | disposition home or self-care (01) ==
LOC: RT 15:38
PROVIDERS: ATTEND Nurse Practitioner
DX: E11.65 Type 2 diabetes mellitus with hyperglycemia (principal); Z79.891 Long term (current) use of opiate analgesic; Z79.899 Other long term (current) drug therapy
CPT/HCPCS: 36415; 80175; 83036; 93005